=== PATIENT | male | born 1950 | race Caucasian/White ===

== ENCOUNTER → 2020-11-28 10:15 | Outpatient (BNVA) | payer OTHER, SELFPAY | PROVIDERS: Referring Provider Emergency Medicine Emergency Medical Services; Visit Provider Specialist | DX: M19.012 Primary osteoarthritis, left shoulder (principal); M25.512 Pain in left shoulder | CPT/HCPCS: 73030 ==

== ENCOUNTER 2020-12-17 10:42 | Outpatient (CLI) | payer OTHER, SELFPAY ==
--- NOTE | 2020-12-17 10:55 | MR_ITS ---
WS: [id number] MRI LEFT SHOULDER NONCONTRAST TECHNIQUE: Sagittal T2, coronal T1, T2 and proton density imaging. Axial gradient PDE imaging. CLINICAL INFORMATION: PAIN COMPARISON: None. FINDINGS: Moderate degenerative arthritis AC joint with edema. Prominent protuberant hypertrophic changes and/o r chronic os acromiale. Moderate to severe narrowing of the subacromial space. Small amount of subacr omial/subdeltoid fluid. Diffuse chronic thinning of the supraspinatus. Small tear involving the supra spinatus insertion measuring 5 mm. Normal infraspinatus. Normal teres minor. Fluid in the subcoracoid bursa. Biceps tendon is absent in the bicipital groove proximally presumably due to chronic tear. Partial high-grade tear involving the subscapularis with some tendon laxity. A few normal fibers visualized distally. Degenerative fraying of the glenoid labrum. Degenerative aragon es involving the glenohumeral joint with subchondral cystic change and chondromalacia. MR/MR shoulder LT wo con* [id number] IMPRESSION: 1. Moderate degenerative arthritis AC joint with downsloping of the acromion a nd moderate subacromial narrowing. Prominent protruding hypertrophic changes at the AC joint. Subacromial/subdeltoid effusion. 2. Chronic thinning of the supraspinatus with a small insertional tear. 3. Normal infraspinatus and teres minor. 4. Partial thickness tear involving the subscapularis with tendon laxity. This appears chronic. 5. Biceps tendon is absent in the bicipital groove proximally consistent with chronic tear. 6. Moderate to advanced degenerative arthritis glenohumeral joint with subchon dral cystic changes
== END 2020-12-17 10:43 | disposition home or self-care (01) ==
PROVIDERS: Visit Provider Specialist
DX: M19.012 Primary osteoarthritis, left shoulder (principal); M75.102 Unspecified rotator cuff tear or rupture of left shoulder, not specified as traumatic
CPT/HCPCS: 73221

== ENCOUNTER 2022-09-08 08:53 | Outpatient (CLI) | payer OTHER, SELFPAY ==
--- NOTE | 2022-09-08 09:06 | USCV_ITS ---
Deepika Mark Age: 72 Gender: M : 1950 Exam Date: 09/08/2022 09:32 Ordering Phys: Deep Miller DO Technologist: LINCOLN Exam Location: [facility] – [place] Indication: Screening HISTORY: Diameter (cm) AP x Transverse x Length Velocity (cm/s) Waveform Prox Aorta: 1.73 x 1.68 x 81.80 Triphasic Mid Aorta: 1.88 x 1.99 x 56.20 Triphasic Distal Aorta: 1.88 x 1.88 x 47.10 Triphasic Right Iliac Prox: 1.40 x 1.34 x 71.90 Triphasic Left Iliac Prox: 1.38 x 1.20 x 65.30 Triphasic Stent Prox Landing x x Aneurysmal Sac Max x x Lt Lat Sac Dim Rt Lat Sac Dim Stent Dist Landing x x Right Iliac Stent x x Left Iliac Stent x x Right Renal Art Left Renal Art FINDINGS: Comparison: none available. No evidence of abdominal aortic aneurysm. Ectatic abdominal aorta with evidence of atherosclerotic plaque noted. No significant stenosis noted in the abdominal aorta. There is evidence of atherosclerotic plaque no significan stenosis in the right common iliac artery. There is evidence of atherosclerotic plaque no significan stenosis in the left common iliac artery. CONCLUSIONS Ectatic abdominal aorta with evidence of atherosclerotic plaque noted. No AAA. Dr. Zeina Diane DO (Electronically Signed) Final Date: 08 September 2022 10:10 S
--- NOTE | 2022-09-08 10:08 | CT_ITS ---
WS: [id number] CT LUMBAR SPINE, noncontrast. HISTORY: CHRONIC LOW BACK PAIN TECHNIQUE: Contiguous 2.5 mm axial imaging are performed. Sagittal and coronal reformats are submitte d and reviewed. All CT scans at [facility] use at least one of these dose optimization techni ques: automated exposure control; mA and/or kV adjustment per patient size (includes targeted exams w here dose is matched to clinical indication); or iterative reconstruction. IV contrast: None DLP: 1645.72 mGy.cm COMPARISON: None available. Mild curvature lumbar spine. Remote biconcave fracture at L2. 4 mm retropulsion of the posterior vert ebral body. Status post vertebroplasty of L2. A small amount of methylmethacrylate is along the poste rior vertebral body. Moderate disc space narrowing and desiccation at L5-S1. L1-2: No central or foraminal stenosis. Mild retropulsion of posterior L2 vertebral body with mild en croachment upon the thecal sac. L2-3: No stenosis. L3-4: Mild disc bulging with ligamentum flavum and facet arthritis. Mild encroachment into the thecal sac. Mild bilateral central and foraminal stenosis. L4-5: Moderate annular disc bulging encroaching upon the ventral thecal sac and subarticular recess. Moderate central and bilateral subarticular recess encroachment. Moderate ligamentum flavum and facet arthritis. Mild bilateral foraminal stenosis. Most significant contact upon the traversing L5 nerve roots. L5-S1: Mild disc bulging. There is a small RIGHT foraminal disc protrusion with mild contact on the R IGHT L5 exiting nerve root. Moderate atherosclerotic plaque within the aorta. Bilateral perinephric stranding. Sigmoid diverticul osis. Fusion across the SI joints. CT/CT lumbar spine wo con* [id number] IMPRESSION: 1. Moderate central and subarticular recess stenosis at L4-5 with mild foramin al stenosis. Disc contacts the traversing L5 nerve roots. 2. Mild central and bilateral foraminal stenosis at L3-4. 3. RIGHT foraminal disc protrusion with mild contact on the RIGHT L5 exiting n erve root. 4. Remote L2 biconcave compression fracture with 4 mm retropulsion of posterio r superior endplate. Very mild contact on the thecal sac with no high-grade callie nosis.
--- NOTE | 2022-09-08 10:17 | US_ITS ---
WS: [id number] THYROID ULTRASOUND HISTORY: PARTIAL THYROIDECTOMY, FATIGUE COMPARISON: None available. 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 No mass at the thyroid bed. No enlarged lymph nodes. There are small benign lymph nodes along the cervical chain. Left lobe: 2.0 cm x 2.3 cm x 3.4 cm (w x ap x l). Volume: 8.1 cm3. Small colloid cyst in the mid LEFT lobe measures 2 x 2 x 4 mm. No solid nodule. Benign LEFT cervical chain lymph node. Isthmus: 0.2 cm. US/US thyroid [id number] IMPRESSION: 1. Status post RIGHT thyroidectomy. 2. No recurrent mass at the RIGHT thyroid bed. 3. Benign colloid cyst LEFT thyroid.
== END 2022-09-08 08:54 | disposition home or self-care (01) ==
LOC: RAD 08:55
PROVIDERS: PCP Emergency Medicine Emergency Medical Services; Visit Provider Emergency Medicine Emergency Medical Services
DX: G89.29 Other chronic pain (principal); R53.83 Other fatigue; E89.0 Postprocedural hypothyroidism; Z13.6 Encounter for screening for cardiovascular disorders; E04.1 Nontoxic single thyroid nodule; M48.061 Spinal stenosis, lumbar region without neurogenic claudication; M51.26 Other intervertebral disc displacement, lumbar region
CPT/HCPCS: 72131; 76536; 76706

== ENCOUNTER → 2022-10-28 09:40 | Outpatient (BNVA) | payer OTHER, SELFPAY | PROVIDERS: PCP Emergency Medicine Emergency Medical Services; Visit Provider Anesthesiology Pain Medicine | DX: M54.50 Low back pain, unspecified (principal); M79.604 Pain in right leg; M79.605 Pain in left leg | CPT/HCPCS: 99214 ==

== ENCOUNTER → 2023-01-15 09:16 | Outpatient (BNVA) | payer OTHER, SELFPAY | PROVIDERS: PCP Emergency Medicine Emergency Medical Services; Visit Provider Anesthesiology Pain Medicine | DX: M48.061 Spinal stenosis, lumbar region without neurogenic claudication (principal); M79.604 Pain in right leg; M79.605 Pain in left leg | CPT/HCPCS: 99214 ==

== ENCOUNTER → 2023-01-29 13:43 | Outpatient (BNVA) | payer OTHER, SELFPAY | PROVIDERS: PCP Emergency Medicine Emergency Medical Services; Visit Provider Anesthesiology Pain Medicine | DX: M54.16 Radiculopathy, lumbar region (principal) | CPT/HCPCS: 64483; 64484; J1100; J3490 ==

== ENCOUNTER → 2023-02-12 12:35 | Outpatient (BNVA) | payer OTHER, SELFPAY | PROVIDERS: PCP Emergency Medicine Emergency Medical Services; Visit Provider Anesthesiology Pain Medicine | DX: M54.16 Radiculopathy, lumbar region (principal) | CPT/HCPCS: 64483; 64484; J1100; J3490 ==

== ENCOUNTER → 2023-03-31 08:23 | Outpatient (BNVA) | payer OTHER, SELFPAY | PROVIDERS: PCP Emergency Medicine Emergency Medical Services; Visit Provider Anesthesiology Pain Medicine | DX: M48.061 Spinal stenosis, lumbar region without neurogenic claudication (principal) | CPT/HCPCS: 99214 ==

== ENCOUNTER 2023-12-23 15:25 | Outpatient (CLI) | payer OTHER, SELFPAY ==
--- NOTE | 2023-12-23 15:36 | MR_ITS ---
WS: [id number] MRI CERVICAL SPINE NONCONTRAST HISTORY: CHRONIC NECK PAIN COMPARISON: None available. Technique: Multiplanar, multisequence noncontrast imaging of the cervical spine. LEFT curvature cervical spine. Anterior cervical fusion from C3-C6. Interbody spacers at C3-4, C4-5 and C5-6. Disc spaces are all na rrowed. No acute fracture or marrow edema. Bony fusion across the RIGHT facet joints of C5-6. Signal within the cervical cord is normal. Visualized posterior fossa is unremarkable. Craniocervical junction, C1 and C2 relationship, odontoid process and soft tissues are normal. C2-C3: Large central disc protrusion contacting the ventral thecal sac. Severe bilateral facet joint arthritis. Combination of findings resulting in at least moderate central and bilateral foraminal callie nosis. Contributing to this stenosis is osteophyte encroachment. C3-C4: Bilateral foraminal osteophytes and mild foraminal stenosis and facet arthritis. C4-C5: Bilateral mild facet arthritis. Very mild central stenosis. C5-C6: Bilateral facet arthritis. Small bilateral foraminal osteophytes and foraminal stenosis. C6-C7: Osteophytosis and disc bulging and facet arthritis. Mild central and bilateral foraminal steno sis. C7-T1: Normal. LEFT thyroid nodule 2.1 x 2.3 cm. IMPRESSION: 1. Advanced degenerative spondylitic changes throughout the cervical spine. 2. Prior anterior cervical fusion with interbody spacers from C3-C6. 3. Moderate central and bilateral foraminal stenosis at C2-3 due to osteophytosis and disc disease a nd facet arthritis. 4. Additional mild central and bilateral foraminal stenoses from C3-4 through C6-7 as described ulisses e. Contributing to this stenosis is facet joint arthritis.
--- NOTE | 2023-12-23 15:37 | MR_ITS ---
WS: [id number] MRI LUMBAR SPINE NONCONTRAST HISTORY: BACK PAIN COMPARISON: None available. TECHNIQUE: Sagittal and axial multisequence imaging is submitted. Marked increase in the lumbar lordosis. Chronic biconcave L2 vertebral body fracture. Prior L2 kyphop lasty. No acute marrow edema. 3 mm anterolisthesis of L4. Normal lumbar alignment with no compression fractures or marrow edema. Disc spaces are all mildly narrowed and desiccated. Conus terminates normally at L1-2 disc level. 50% T6 anterior wedging. Very minimal anterior wedging of T11. L1-L2: Bilateral facet arthritis no significant stenosis. L2-L3: Mild annular disc bulging with a shallow LEFT foraminal disc protrusion. There is very slight bowing of the L2 vertebral body without significant stenosis. Mild bilateral foraminal stenosis. L3-L4: Diffuse annular disc bulging with osteophytosis, ligamentum flavum and facet arthritis. Fluid in the facet joints. Severe central and bilateral subarticular recess stenosis with moderate foramina l stenosis. Significant encroachment upon the traversing L4 nerve roots. L4-L5: Severe annular disc bulging, osteophytosis, ligamentum flavum and facet arthritis. Fluid in th e LEFT facet joint. Severe central, bilateral subarticular recess with moderate RIGHT and mild LEFT f oraminal stenosis. Most significant contact on the traversing L5 nerve roots and the RIGHT exiting L4 nerve root. L5-S1: Mild annular disc bulging with mild bilateral facet arthritis. Moderate bilateral foraminal st enosis. No significant central stenosis. Low signal 10 mm mass in the LEFT kidney is probably hemorrhagic cyst. IMPRESSION: 1. Biconcave L2 vertebral body fracture status post kyphoplasty. Chronic. 2. No acute lumbar spine fracture. 3. L3-4 and L4-5: Severe central and bilateral subarticular recess stenosis. Moderate bilateral fora salma stenosis at L3-4 and on the RIGHT at L4-5. Most significant disc contact is on the traversing L 4 and L5 nerve roots and the RIGHT exiting L4 nerve root. 4. Moderate bilateral foraminal stenosis at L5-S1. 5. Remote T6 and T11 anterior compression fractures.
== END 2023-12-23 15:26 | disposition home or self-care (01) ==
LOC: RAD 15:26
PROVIDERS: PCP Emergency Medicine Emergency Medical Services; Visit Provider Emergency Medicine Emergency Medical Services
DX: M54.16 Radiculopathy, lumbar region (principal); M48.07 Spinal stenosis, lumbosacral region; M48.02 Spinal stenosis, cervical region; M47.812 Spondylosis without myelopathy or radiculopathy, cervical region; Z98.890 Other specified postprocedural states
CPT/HCPCS: 72141; 72148

== ENCOUNTER 2024-07-25 11:15 | Emergency (ER) | payer OTHER, SELFPAY ==
[2024-07-25] VITALS (8 sets, daily range): BP systolic 106–147; BP diastolic 50–101; PULSE 77–107; RESP 14–18; TEMP 36.7; O2SAT 90–96; BMI 29.0
--- NOTE | 2024-07-25 11:17 | ECG_ITS ---
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 Measurements Intervals [place] Rate: 107 P: 0 ID: 0 QRS: -36 QRSD: 102 T: 85 QT: 347 QTc: 464 Interpretive Statements ATRIAL FIBRILLATION WITH RAPID VENTRICULAR RESPONSE WITH ABERRANT CONDUCTION OR VENTRICULAR PREMATURE COMPLEXES LEFT AXIS DEVIATION [QRS AXIS < -30] SEPTAL MYOCARDIAL INFARCTION , PROBABLY OLD [40+ ms Q WAVE IN V1/V2] No previous ECG available for comparison Electronically Signed On 07-26-2024 01:21:55 CDT by Radha Dai M.D. [id number] f
--- NOTE | 2024-07-25 11:33 | XRR_ITS ---
PROCEDURE INFORMATION: Exam: XR Chest Exam date and time: 07/25/2024 11:49 AM Age: 73 years old Clinical indication: Shortness of breath; Additional info: Palpitations TECHNIQUE: Imaging protocol: Radiologic exam of the chest. Views: 1 view. COMPARISON: MR cervical spin wo con* [id number] 12/23/2023 3:45 PM FINDINGS: Lungs: Atelectasis, infiltrate, or fibrosis in the left lower lobe. Pleural spaces: Unremarkable. No pleural effusion. No pneumothorax. Heart/Mediastinum: See Vasculature finding. Vasculature: Moderate cardiomegaly and uncoiling of the thoracic aorta each accentuated by the AP positioning. Bones/joints: Prior trauma involving the left clavicle and multiple left ribs. XR/XR chest 1V portable [id number] IMPRESSION: Mild opacity at the left lung base, an unknown combination of atelectasis, infiltrate, and/or fibrosis.
--- NOTE | 2024-07-25 11:38 | ED_ITS ---
HPI - Dizziness 2 General: Chief Complaint: Arrhythmia/Palpitations Stated Complaint: Afib (sent by [facility]) Time Seen by Provider: 07/25/24 11:30 History of Present Illness: HPI Narrative: 73-year-old man with a history of hypert ension, hyperlipidemia and recently diagnosed atrial fibrillation who was sent to the emergency room from the [facility] with atrial fibrillation with a heart rate of 107. He said he has had some recent mild dizziness/lightheadedness and some mild palpitations. No chest pain. No altered mental status. No abdominal pain. No nausea or vomiting. No fevers. Related Data Home Medications Medication Instructions Recorded Confirmed ascorbate calcium (vitamin C) 500 500 mg PO DAILY 11/28/20 07/25/24 mg tablet sertraline 100 mg tablet 100 mg PO DAILY 11/28/20 07/25/24 trazodone 100 mg tablet 100 mg PO DAILY 11/28/20 07/25/24 famotidine 20 mg tablet 20 mg PO BID 10/28/22 07/25/24 atorvastatin 80 mg tablet 80 mg PO QPM 07/25/24 07/25/24 cetirizine 10 mg tablet 10 mg PO DAILY 07/25/24 07/25/24 fluticasone 250 mcg-salmeterol 50 1 inh inhalation BID 07/25/24 07/25/24 mcg/dose blistr powdr for inhalation hydrochlorothiazide 25 mg tablet 12.5 mg PO DAILY 07/25/24 07/25/24 primidone 50 mg tablet 25 mg PO TID 07/25/24 07/25/24 Previous Rx's Medication Instructions Recorded metoprolol tartrate 25 mg tablet 12.5 mg (1/2 x 25 mg) PO BID #30 07/25/24 tabs Allergies Allergy/AdvReac Type Severity Reaction Status Date / Time No Known Allergies Allergy Verified 07/25/24 11:27 Review of Systems 2 Narrative: Constitutional symptoms: Negative except as documented in HPI. Skin symptoms: Negative except as documented in HPI. Eye symptoms: Negative except as documented in HPI. ENMT symptoms: Negative except as documented in HPI. Respiratory symptoms: Negative except as documented in HPI. Cardiovascular symptoms: Negative except as documented in HPI. Gastrointestinal symptoms: Negative except as documented in HPI. Genitourinary symptoms: Negative except as documented in HPI. Musculoskeletal symptoms: Negative except as documented in HPI. Neurologic symptoms: Negative except as documented in HPI. Psychiatric symptoms: Negative except as documented in HPI. Endocrine symptoms: Negative except as documented in HPI. PFSH ED 2 PFSH: Family History Father CAD (coronary artery disease) Mother Hypertension Dementia Diabetes Social History Smoking and tobacco/nicotine status: former use of tobacco/nicotine Alcohol intake: current Physical Exam 2 Narrative: EXAM NARRATIVE: General: Alert, no acute distress. Skin: Warm, dry. Head: Normocephalic, atraumatic. Neck: Supple, trachea midline. Eye: Extraocular movements are intact. Ears, nose, mouth and throat: mucosa moist. Cardiovascular: Irregularly irregular, mildly tachycardic, Normal peripheral perfusion. Respiratory: Lungs are clear to auscultation, respirations are non-labored, breath sounds are equal, Symmetrical chest wall expansion. Gastrointestinal: Soft, Nontender, Non distended Musculoskeletal: Normal ROM, no deformity. Neurological: Alert and oriented, No focal neurological deficit observed. Psychiatric: Cooperative, appropriate mood & affect. Course 2 Vital Signs: Vital signs: Vital Signs Temperature 98.0 F 07/25/24 11:23 Pulse Rate 95 07/25/24 14:13 Respiratory Rate 14 07/25/24 11:43 Blood Pressure 133/97 07/25/24 14:13 Pulse Oximetry 93 07/25/24 14:13 Oxygen Delivery Me thod Nasal Cannula 07/25/24 14:13 MDM - Dizziness Medical Decision Making Medical decision making: Differential diagnosis including but not limited to and based on the above HPI, review of systems and physical exam: for patient with palpitations: atrial fibrillation with rapid ventricular response. ventricular tachycardia. sinus tachycardia. PVCs. also concern for underlying issues causing tachycardia. Infection, electrolyte abnormalities and thyroid issues Orders placed to evaluate differential diagnosis based on the above differential, HPI and physical exam EKG: Time 1117. Rate 107. Atrial fibrillation with rapid ventricular response. No ST-T changes, This was reviewed and interpreted by myself the ER physician at 11:20 AM. Chest x-ray: Mild opacity in the left lung base. Could be atelectasis infiltrate or fibrosis. CT scan ordered to evaluate further. This was reviewed and interpreted by myself the emergency room physician. I also reviewed the radiology report. Lab Review: Laboratory results were reviewed and interpreted by myself the emergency room physician. No leukocytosis. No anemia. BUN and creatinine are slightly elevated at 15 and 1.4. No previous labs so I do not have a baseline. Potassium is mildly low at 3.2. CT of the chest shows no acute process. There is some fibrosis in the left lung. There was also a pulmonary nodule that needs repeat imaging. I reviewed the patient's medical record. TUCKER?DS?-VASc Score for Atrial Fibrillation Stroke Risk from [employer] on 07/25/2024 All calculations should be rechecked by clinician prior to use RESULT SUMMARY: 2 points Stroke risk was 2.2% per year in >90,000 patients (the [place] Atrial Fibrillation Cohort Study) and 2.9% risk of stroke/TIA/systemic embolism. One recommendation suggests a 0 score for men or 1 score for women (no clinical risk factors) is ?low? risk and may not require anticoagulation; a 1 score for men or 2 score for women is ?low-moderate? risk and should consider anticoagulation; and a score >= for men or >= for women is ?moderate-high? risk and should otherwise be an anticoagulation candidate. INPUTS: Age ?> 1 = 65-74 Sex ?> 0 = Male CHF history ?> 0 = No Hypertension history ?> 1 = Yes Stroke/TIA/thromboembolism history ?> 0 = No Vascular disease history (prior [place], peripheral artery disease, or aortic plaque) ?> 0 = No Diabetes history ?> 0 = No Patient is low to moderate risk for needing anticoagulation with his A-fib. I will defer this to his primary care physician. Reexamination: Patient remained stable. Rate is controlled. No altered mental status. No focal motor deficits. Assessment and plan Atrial fibrillation Dehydration Pulmonary nodule ? Normal saline bolus and first dose metoprolol emergency room. - Discharged home - Discussed plan with patient. Answered any questions. - Evaluation and treatment of this problem were appropriate in the emergency setting. Lab Data 07/25/24 11:45 07/25/24 11:45 Radiology Impressions Chest X-Ray 07/25/24 11:33 IMPRESSION: Mild opacity at the left lung base, an unknown combination of atelectasis, infiltrate, and/or fibrosis. Chest CT 07/25/24 13:13 IMPRESSION: 1. Mild fibrosis on the left. 2. Small semi-solid focus on the right, likely fibrosis. Follow-up chest CT in 3 months recommended. Laboratory Results WBC 7.33 10^3/uL (3.29-11.43) 07/25/24 11:45 RBC 4.82 10^6/uL (3.85-5.65) 07/25/24 11:45 Hgb 14.90 g/dL (11.27-16.99) 07/25/24 11:45 Hct 43.2 % (37-53) 07/25/24 11:45 MCV 89.6 fl (82-101) 07/25/24 11:45 MCH 30.9 pg (27-33) 07/25/24 11:45 MCHC 34.5 g/dL (30-55) 07/25/24 11:45 RDW 13.4 % (12.1-15.1) 07/25/24 11:45 Plt Count 226 10^3/cmm (157-399) 07/25/24 11:45 MPV 9.5 fL (7.4-10.4) 07/25/24 11:45 Neut % (Auto) 57.4 % 07/25/24 11:45 Lymph % (Auto) 27.7 % 07/25/24 11:45 Catron % (Auto) 11.9 % 07/25/24 11:45 Eos % (Auto) 1.9 % 07/25/24 11:45 Baso % (Auto) 0.8 % 07/25/24 11:45 Neut # (Auto) 4.21 10^3/uL (1.8-7.7) 07/25/24 11:45 Lymph # (Auto) 2.0 10^3/uL (0.8-4.8) 07/25/24 11:45 Catron # (Auto) 0.9 10^3/uL (0.2-0.9) 07/25/24 11:45 Eos # (Auto) 0.1 10^3/uL (0.0-0.8) 07/25/24 11:45 Baso # (Auto) 0.1 10^3/uL (0.0-0.1) 07/25/24 11:45 Nucleated RBC % (auto) 0 % 07/25/24 11:45 Nucleated RBCs # 0.0 /100WBC 07/25/24 11:45 Sodium 134 mmol/L (136-145) L 07/25/24 11:45 Potassium 3.2 mmol/L (3.5-5.1) L 07/25/24 11:45 Chloride 100 mmol/L (98-107) 07/25/24 11:45 Carbon Dioxide 27 mmol/L (22-29) 07/25/24 11:45 Anion Gap 10.2 (5-19) 07/25/24 11:45 BUN 15 mg/dL (8-23) 07/25/24 11:45 Creatinine 1.4 mg/dL (0.7-1.2) H 07/25/24 11:45 GFR Calculation Not Reportable 07/25/24 11:45 Glucose 107 mg/dL (65-115) 07/25/24 11:45 Calculated Osmolality 279 mOsm/kg (285-295) L 07/25/24 11:45 Calcium 8.6 mg/dL (8.5-10.5) 07/25/24 11:45 Magnesium 1.9 mg/dL (1.7-2.3) 07/25/24 11:45 Total Bilirubin 0.7 mg/dL (0.15-1.2) 07/25/24 11:45 AST 38 U/L (0-40) 07/25/24 11:45 ALT 32 U/L (0-41) 07/25/24 11:45 Alkaline Phosphatase 66 U/L (40-130) 07/25/24 11:45 Troponin T Baseline 20 ng/L (0-15) H 07/25/24 11:45 Troponin T 120 Minute 19.40 ng/L (0-15) H 07/25/24 13:38 Delta Troponin T -0.60 ABS# (0-10) L 07/25/24 13:38 Total Protein 6.4 g/dL (6.6-8.7) L 07/25/24 11:45 Albumin 4.0 g/dL (3.5-5.2) 07/25/24 11:45 Globulin 2.4 g/dL (1.3-4.6) 07/25/24 11:45 TSH 0.79 uIU/mL (0.27-4.20) 07/25/24 11:45 All radiology interpretation(s) finalized by discharge Discharge Plan Discharge Patient Disposition: Home Clinical Impression: Atrial fibrillation, Incidental pulmonary nodule Condition: Stable Prescriptions: New metoprolol tartrate 25 mg tablet 12.5 mg PO BID Qty: 30 1RF No Action sertraline 100 mg tablet 100 mg PO DAILY trazodone 100 mg tablet 100 mg PO DAILY ascorbate calcium (vitamin C) 500 mg tablet 500 mg PO DAILY famotidine 20 mg tablet 20 mg PO BID primidone 50 mg Tablet 25 mg PO TID Rx Instructions: take 1/2 tablet by mouth three times daily for tremor fluticasone propion-salmeterol 250-50 mcg/dose Blister With Device 1 inh INHALATION BID atorvastatin 80 mg Tablet 80 mg PO QPM cetirizine 10 mg Tablet 10 mg PO DAILY hydrochlorothiazide 25 mg Tablet 12.5 mg PO DAILY Rx Instructions: take 1/2 tablet by mouth daily for high blood pressure Discharge Orders: Discharge ED (Routine); Ordered 07/25/24 Ordered By: Fallon Lundy Referrals: Karen Mcclendon FNP [Primary Care Provider] - Discharge Diet: Usual diet Discharge Activity: Increase activity as tolerated Patient Instructions: A-fib (Atrial Fibrillation) (ED), Pulmonary Nodules (ED) Activity Restrictions/Additional Instructions: Please hold your hydrochlorothiazide and start metoprolol. Follow-up with your primary soon. You may need to be anticoagulated but they will need to make this determination. A pulmonary nodule was seen on imaging. This will need follow up imaging with your primary provider. Please schedule an appointment concerning this. Thank you for choosing [facility] for your healthcare needs today. Please realize this is an emergency room and that we are providing you with a medical screening exam and this may not be complete and all inclusive of all the testing and or work up that you may need to determine your ailment or severity of your illness. You have been screened and evaluated and felt safe for discharge. Health conditions do change or evolve sometimes and as such it is important that you follow up with your Primary Doctor to be re checked, 3-5 days is a general good time frame for follow up. 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
[2024-07-25 11:55] LABS: Basophils # 0.1 10^3/uL (0.0-0.1); Basophils % 0.8 %; Eosinophils # 0.1 10^3/uL (0.0-0.8); Eosinophils % 1.9 %; Hematocrit 43.2 % (37-53); Lymphocytes % 27.7 %; Mean Corpuscular HGB Conc 34.5 g/dL (30-55); Mean Corpuscular Hemoglobin 30.9 pg (27-33); Mean Corpuscular Volume 89.6 fl (82-101); Mean Platelet Volume 9.5 fL (7.4-10.4); Monocytes # 0.9 10^3/uL (0.2-0.9); Monocytes % 11.9 %; Neutrophils # 4.21 10^3/uL (1.8-7.7); Neutrophils % 57.4 %; Nucleated Red Blood Cells % 0 %; Platelet Count 226 10^3/cmm (157-399); Red Blood Count 4.82 10^6/uL (3.85-5.65); Red Cell Distribution Width 13.4 % (12.1-15.1); White Blood Count 7.33 10^3/uL (3.29-11.43)
[2024-07-25 12:13] LABS: Troponin(5th) Baseline 20 ng/L (0-15)
[2024-07-25 12:21] LABS: Alanine Aminotransferase 32 U/L (0-41); Alkaline Phosphatase 66 U/L (40-130); Anion Gap 10.2 (5-19); Aspartate Amino Transferase 38 U/L (0-40); Blood Urea Nitrogen 15 mg/dL (8-23); Calcium 8.6 mg/dL (8.5-10.5); Carbon Dioxide 27 mmol/L (22-29); Chloride 100 mmol/L (98-107); Creatinine Clr Calc Pharmacy 49.5618; Globulin 2.4 g/dL (1.3-4.6); Glucose 107 mg/dL (65-115); Magnesium 1.9 mg/dL (1.7-2.3); Osmolality Calculated 279 mOsm/kg (285-295); Potassium 3.2 mmol/L (3.5-5.1); Sodium 134 mmol/L (136-145); Thyroid Stimulating Hormone 0.79 uIU/mL (0.27-4.20); Total Bilirubin 0.7 mg/dL (0.15-1.2); Total Protein 6.4 g/dL (6.6-8.7)
--- NOTE | 2024-07-25 12:28 | PC.PHAR ---
[facility] [place] [facility], [facility]ed over med list
--- NOTE | 2024-07-25 13:13 | CTR_ITS ---
PROCEDURE INFORMATION: Exam: CT Chest Without Contrast; Diagnostic Exam date and time: 07/25/2024 1:24 PM Age: 73 years old Clinical indication: Shortness of breath; Additional info: Abnormal chest xray TECHNIQUE: Imaging protocol: Diagnostic computed tomography of the chest without contrast. Radiation optimization: All CT scans at this facility use at least one of these dose optimization techniques: automated exposure control; mA and/or kV adjustment per patient size (includes targeted exams where dose is matched to clinical indication); or iterative reconstruction. COMPARISON: CR XR chest 1V portable [id number] 07/25/2024 11:49 AM RADIATION DOSE METRICS: Total DLP (mGy-cm): 524 FINDINGS: Lungs: 1.2 x 1.7 cm semi-solid focus at the right lung base (4-43) is likely fibrosis. Follow-up in 3 months recommended. Mild linear fibrosis at the left base. No infiltrate or effusion. Pleural spaces: Unremarkable. No pneumothorax. No pleural effusion. Heart: Unremarkable. No cardiomegaly. No pericardial effusion. Coronary arteries: Coronary artery calcifications. Lymph nodes: Unremarkable. No enlarged lymph nodes. Vasculature: Azygos accessory fissure. Diaphragm: Moderate hiatal hernia. Liver: Coarse hepatic calcifications. Small likely hepatic cysts. Bones/joints: Mild compression of an upper thoracic vertebral body. Soft tissues: Unremarkable. CT/CT chest wo con [id number] IMPRESSION: 1. Mild fibrosis on the left. 2. Small semi-solid focus on the right, likely fibrosis. Follow-up chest CT in 3 months recommended.
--- NOTE | 2024-07-25 14:07 | ECG_ITS ---
[facility] Test Date: 2024-07-25 Pat Name: Mark Poe Department: Room: Gender: Male Electronic Technologist: : 1950 Requested By: Fallon Evans Order Number: [id number] Carly MD: Radha Dai M.D. Measurements Intervals [place] Rate: 94 P: 0 CO: 0 QRS: -35 QRSD: 105 T: 71 QT: 379 QTc: 475 Interpretive Statements ATRIAL FIBRILLATION WITH ABERRANT CONDUCTION OR VENTRICULAR PREMATURE COMPLEXES LEFT AXIS DEVIATION [QRS AXIS < -30] INCOMPLETE RIGHT BUNDLE BRANCH BLOCK [90+ ms QRS DURATION, TERMINAL R IN V1/V2, 40+ ms S IN I/aVL/V4/V5/V6] Compared to ECG 07/25/2024 11:17:23 Incomplete right bundle-branch block now present Myocardial infarct finding no longer present Electronically Signed On 07-26-2024 01:35:13 CDT by Radha Dai M.D. [id number]
[2024-07-25] MEDS: sodium chloride 0.9% 500 ML 999 ML IV (14:55)
[2024-07-25] MEDS: metoprolol tartrate 25 mg Tablet 12.5 MG PO (14:55)
--- NOTE | 2024-07-26 13:30 | PC.SOCIAL ---
Records sent to [place].
== END 2024-07-25 15:22 | disposition home or self-care (01) ==
PROVIDERS: Emergency Provider Emergency Medicine; PCP Nurse Practitioner
DX: I48.20 Chronic atrial fibrillation, unspecified (principal); R91.1 Solitary pulmonary nodule; Z87.891 Personal history of nicotine dependence
CPT/HCPCS: 36415; 71045; 71250; 80053; 83735; 84443; 84484; 85025; 93005; 99285; J7040

== ENCOUNTER → 2024-09-08 10:00 | Outpatient (BNVA) | payer OTHER, SELFPAY | PROVIDERS: PCP Nurse Practitioner; Referring Provider Nurse Practitioner; Visit Provider Student in an Organized Health Care Education/Training Program | DX: Z12.11 Encounter for screening for malignant neoplasm of colon (principal) | CPT/HCPCS: 99204 ==

== ENCOUNTER → 2024-10-10 10:46 | Outpatient (BNVA) | payer OTHER, SELFPAY | PROVIDERS: PCP Nurse Practitioner; Visit Provider Internal Medicine Cardiovascular Disease | DX: I48.91 Unspecified atrial fibrillation (principal); I10 Essential (primary) hypertension; E78.5 Hyperlipidemia, unspecified; E11.9 Type 2 diabetes mellitus without complications; R01.1 Cardiac murmur, unspecified; I49.8 Other specified cardiac arrhythmias; Z79.01 Long term (current) use of anticoagulants; Z87.891 Personal history of nicotine dependence | CPT/HCPCS: 99205 ==

== ENCOUNTER 2024-10-25 11:50 | Day surgery (SDC) | payer OTHER, SELFPAY ==
--- OUTSIDE RECORDS SUMMARY | 2024-09-12 11:33 | XMS_ITS | Patient Health Record ---
Author Name Unknown Organization [facility] Address [address] [place] [address] Care Team Providers Care Apple Sorter Name Role Phone [facility] Deep LEZAMA Primary Care Provider Un available Nicolás Vasquez Unavailable [phone] [place], [place] Unavailable Unavailable Allergies No Known Allergies Reason For Referral Reason Screening COLON-Cx ed Referring Provider First Name Jeremiah Wenceslao ff Referring Provider Last Name AR Referring Provider [facility] Referred Organization [facility] Referred Provider Nicolás Vasquez Referred Address [address] [place],[address], Referred Provider Specialty Gastroentero logy Referral Priority Routine Reason Screening F/U-w/Ca rmel Referring Provider First Name Jeremiah Wenceslao ff Referring Provider Last Name AR Referring Provider [facility] Referred Organization [facility] Referred Provider Nicolás Vasquez Referred Address [address] [place],[address], Referral Priority Routine Medications Medication SIG (Take, Route, Frequency, Duration) Notes Start Date End Date Status Reglan 10 MG 1 tablet as directed Orally once for 1 day 08/03/2023 Active Wixela Inhub 100-50 MCG/ACT 1 puff Inhal ation Twice a day Active Albuterol Sulfate 108 (90 Ba se) MCG/ACT 1 puff as needed Inhalation every 4 hrs as needed Active Vitamin D3 50 MCG (1999) 1 tablet Ora lly Once a day Active Calcium 500 MG 1 tablet with meals Orally Twice a day Active Atorvastatin Calcium 80 MG 1 tablet Oral ly Once a day Active Famotidine 20 MG 1 tablet Orally Twic e a day Active Sertraline HCl 200 MG 1 capsule Orally O nce a day Active hydroCHLOROthiazide 25 MG 1/2 tablet Ora lly Once a day Active traZODone HCl 100 MG 1 tablet at bedtime Orally Once a day Active Social History Tobacco Use: Social History Observation Description Date Details (start date - stop date) Former Smoker NA - NA xTobacco Use/Smoking Question Answer Notes Are you a former smoker How long has it been since you last smoked? > 10 years Problems Problem Type SNOMED Code ICD Code Onset Dates Problem Status W/U Status Risk Notes Problem 071173182 History of adenomatous polyp of colon (Z86.010) Active confirmed Plan Of Treatment Pending Test Test Name Order Date Colonoscopy, High Risk Screening-G0105 1 Insurance Providers Payer Name Payer Address Payer Phone Subscriber Number Group Number Insured Name Patient Relationship to Insured Coverage Start Date Coverage End Date [employer] [address] [place]HA GONZALEZ [phone] [id number] Mark Poe Self - patient is the insured Medical (General) History Medical History History ICD Code Pneumonia Arthritis Gonorrhea Vertebral facture Hypertension hemorrhoids Asthma COPD Anxiety Adenomatous colon polyps depression GERD Psoriasis sleep apnea Thyroid nodules Surgical History Surgery Date(Month/Year) left knee arthroscopy, meniscus repair 0 06/21/1994 Hiatal hernia repair 12/22/2009 Left thyroid nodule excision 2006 Right thyroidectomy 2012 Bilateral CEIOLI 2021 Lumbar and cervical spine surgery Right inguinal hernia repair
--- OUTSIDE RECORDS SUMMARY | 2024-09-12 11:33 | XMS_ITS ---
Author Name Unknown Organization [facility] Address [address] [place] [address] Care Team Providers Care Home Assessment Nurse Name Role Phone [facility] Deep LEZAMA Primary Care Provider Un available Nicolás Vasquez Unavailable [phone] Jeremiah WAYNE Unavailable Unavailable REASON FOR VISIT hx of adenomatous colon polyps, screening colon Medications Medication SIG (Take, Route, Frequency, Duration) Notes Start Date End Date Status Wixela Inhub 100-50 MCG/ACT 1 puff Inhal ation Twice a day Active Albuterol Sulfate 108 (90 Ba se) MCG/ACT 1 puff as needed Inhalation every 4 hrs as needed Active Vitamin D3 50 MCG (2000 UT) 1 tablet Ora lly Once a day [...] since you last smoked? > 10 years Encounters Encounter Location Date Provider Diagnosis [facility] [address] [place] [address] 12/07/2023 Nicolás Vasquez History of adenomatous polyp of colon Z86.010 and Screening for colon cancer Z12.11 Assessments Encounter Date Diagnosis (ICD Code) Assessment Notes Treatment Notes Treatment Clinical Notes 12/07/2023 History of adenomatous polyp of colon (ICD-10 - Z86.010) High risk screening colonoscopy today. 12/07/2023 Screening for colon cancer (ICD-10 - Z12.11) Plan Of Treatment Treatment Notes Assessment Notes History of adenomatous polyp of colon Hi gh risk screening colonoscopy today. Progress Notes * Mark PALMER EDOB: [birth year] (74 yo M)Acc No.[id number]:12/07/2023 History and Physical Patient:?Mark PALMER E Provider:?Nicolás Vasquez MD :1950???Age:73 Y???Sex:Male Baron e:12/07/2023 Address:[address] [place], [place] [address] [facility] [place] [address] Pcp:Deep Miller-AK, DO Check Out:09:21 AM COTTON INSPECTOR Subjective: * Chief Complaints: * ???1. Hx of adenomatous colo n polyps, screening colon. * HPI: ???Provider Note:? Mr. Palmer is a 73-year-old male patient of Dr. Miller here for surveillance colonoscopy. Last colonoscopy was in 2018 at [facility] in [place] with findings of adenomatous polyps. No family history of colon cancer. * ROS:?General - Multi System:?Constitutional?Denies fever, chills, recent weight loss.?Cardiovascular?Denies any recent chest pain.?Respiratory?Denies any shortness of breath, cough.?Gastrointestinal?Denies heartburn, constipation, diarrhea, nausea, vomiting, blood in stools, or abdominal pain.? * Medical History:?Pneumonia, Arthritis, Gonorrhea, Vertebral facture, Hypertension, Hemorrhoids, Asthma, COPD, Anxiety, Adenomatous colon polyps, Depression, GERD, Psoriasis, Sleep apnea, Thyroid nodules. * Surgical History:?left knee arthroscopy, meniscus repair 06/21/1994, Hiatal hernia repair 12/22/2009, Left thyroid nodule excision 2006, Right thyroidectomy 2011, Bilateral CEIOLI 2021, Lumbar and cervical spine surgery , Right inguinal hernia repair . * Family History:?Father: dece ased 86 yrs, pneumonia.?Mother: 92 yrs, skin cancer, diabetes, alzheimer's.? No family history of colon cancer or polyps. * Social History:?Tobacco Use:?xTobacco Use/Smoking?Are you a?former smoker ?How long has it been since you last smoked??> 10 years * Medications:?Taking Wixela I nhub 100-50 MCG/ACT Aerosol Powder Breath Activated 1 puff Inhalation Twice a day , Taking Albuterol Sulfate 108 (90 Base) MCG/ACT Aerosol Powder Breath Activated 1 puff as needed Inhalation every 4 hrs as needed , Taking Vitamin D3 50 MCG (2000 UT) Tablet 1 tablet Orally Once a day , Taking Calcium 500 MG Tablet 1 tablet with meals Orally Twice a day , Taking Atorvastatin Calcium 80 MG Tablet 1 tablet Orally Once a day , Taking Famotidine 20 MG Tablet 1 tablet Orally Twice a day , Taking Sertraline HCl 200 MG Capsule 1 capsule Orally Once a day , Taking hydroCHLOROthiazide 25 MG Tablet 1/2 tablet Orally Once a day , Taking traZODone HCl 100 MG Tablet 1 tablet at bedtime Orally Once a day Objective: * Vitals:? * Examination: ???General Examination: ?GENERAL APPEARANCE:?alert , pleasant, in no acute distress.?HEART:?Regular rate and rhythm.?LUNGS:?clear to auscultation bilaterally.?ABDOMEN:?bowel sounds present, soft, nontender, nondistended.? Assessment: * Assessment: 1.?History of adenomatous po lyp of colon - Z86.010 (Primary)???2.?Screening for colon cancer - Z12.11??? Plan: * Treatment: * Billing Information: * Visit Code:? * Procedure Codes:? * Electronic signature of Will carissa Vasquez MD on 09/12/2024 at 11:32 AM COTTON INSPECTOR Sign off status: Pending * Provider:?Nicolás Vasquez MD Date:? 024 Generated for Jaylan anthony/Elicia/Elda on:?09/12/2024 11:32 AM COTTON INSPECTOR History and Physical Notes * Examination Category Sub-Category Detail Notes General Examination GENERAL APPEARANCE: alert , pleasant, in no acute distress HEART: Regular rate and rhy thm LUNGS: clear to auscultatio n bilaterally ABDOMEN: bowel sounds present , soft, nontender, nondistended
--- OUTSIDE RECORDS SUMMARY | 2024-09-12 11:33 | XMS_ITS ---
Author Name Unknown Organization [facility] Address [address] [place] [address] Care Team Providers Care Class A Regional Truck Driver Name Role Phone [facility] Deep LEZAMA Primary Care Provider Un available Nicolás Vasquez Unavailable [phone] Maya WAYNEPatricksburg Unavailable Unavailable Felicitas Rose Unavailable [phone] Allergies No Known Allergies REASON FOR VISIT It's time for my colonoscopy Medications Medication SIG (Take, Route, Frequency, Duration) Notes Start Date End Date Status Famotidine 20 MG 1 tablet Orally Twice a day Active Sertraline HCl 200 MG 1 capsule Orally Once a day Active hydroCHLOROthiazide 25 MG 1/2 tablet Ora lly Once a day Active traZODone HCl 100 MG 1 tablet at bedtime Orally Once a day Active Atorvastatin Calcium 80 MG 1 tablet Oral ly Once a day Active Reglan 10 MG 1 tablet as directed Orally once for 1 day 08/03/2023 Active Wixela Inhub 100-50 MCG/ACT 1 puff Inhal ation Twice a day Active Albuterol Sulfate 108 (90 Base) MCG/ACT 1 puff as needed Inhalation every 4 hrs as needed Active Vitamin D3 50 MCG (2000 UT) 1 tablet Ora lly Once a day Active Calcium 500 MG 1 tablet with meals Orally Twice a day Active Golytely 236 GM as directed Orally once for 1 day 08/03/2023 08/04/2023 Active Social History Tobacco Use: Social History Observation Description Date Details (start date - stop date) Former Smoker NA - NA xTobacco Use/Smoking Question Answer Notes Are you a former smoker How long has it been since you last smoked? > 10 years Alcohol Screen (Audit-C) Question Answer Notes Did you have a drink containing alcohol in the p ast year? No Points 0 Interpretation Negative Problems Problem Type SNOMED Code ICD Code Onset Dates Problem Status W/U Status Risk Notes Problem [id number] History of adenomatous polyp of colon (Z86.010) Active confirmed Vital Signs Temperature 99.0 degrees Fahrenheit 08/03/20 23 Blood pressure systolic 122 mm Hg 08/03/20 23 Blood pressure diastolic 80 mm Hg 023 Heart Rate 96 /min 08/03/2023 Respiratory Rate 20 /min 08/03/2023 Height 67 in 08/03/2023 Weight 192.4 lbs 08/03/2023 BMI 30.13 kg/m2 08/03/2023 Oximetry 98 % 08/03/2023 Height-cm 170.18 cm 08/03/2023 Weight-kg 87.27 kg 08/03/2023 Encounters Encounter Location Date Provider Diagnosis [facility] [address] [place] [address] 08/03/2023 Felicitas Rose History of adenomatous polyp of colon Z86.010 ; Preprocedural examination Z01.818 and Screening for colon cancer Z12.11 Assessments Encounter Date Diagnosis (ICD Code) Assessment Notes Treat ment Notes Treatment Clinical Notes 08/03/2023 History of adenomatous polyp of colon (ICD-10 - Z86.010) 08/03/2023 Preprocedural examination (ICD-10 - Z01.818) The patient has a prerequisite risk factors for development of colon cancer. I have discussed the options of screening testing with their advantages and disadvantages. I have recommended screening colonoscopy with possible biopsy and polypectomy. Risks and Benefits: The benefits, risks, and complications were presented to pt. The patient is aware of the risk of bleeding, perforation, infection, and anesthetic complications related to colonoscopy. The patient is aware that although colonoscopy is an accurate procedure, it does have some limitations. As a result, some lesions, including cancer may be missed by colonoscopy. Ample time was given to answer all questions. Instructions given for the bowel prep. Follow up will be determined after the colonoscopy. Refer back to PCP. 08/03/2023 Screening for colon cancer (ICD-10 - Z12.11) 08/03/2023 Other Colonoscopy: Be fore Your Procedure material was printed, Learning About Foods That Are Good Sources of Fiber material was printed Plan Of Treatment Medication Medication Name Sig Start Date Stop Date Notes Reglan 10 MG 1 tablet as directed Orally once for 1 day 08/03/2023 Golytely 236 GM as directed Orally once for 1 day 08/03/20 23 08/04/2023 Treatment Notes Assessment Notes Preprocedural examination The patient has a prerequisite risk factors for development of colon cancer. I have discussed the options of screening testing with their advantages and disadvantages. I have recommended screening colonoscopy with possible biopsy and polypectomy. Risks and Benefits: The benefits, risks, and complications were presented to pt. The patient is aware of the risk of bleeding, perforation, infection, and anesthetic complications related to colonoscopy. The patient is aware that although colonoscopy is an accurate procedure, it does have some limitations. As a result, some lesions, including cancer may be missed by colonoscopy. Ample time was given to answer all questions. Instructions given for the bowel prep. Follow up will be determined after the colonoscopy. Refer back to PCP. 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 It's time for my colonos copy * HPI: ???::? The patient is a 72 year old male who presents on referral from the [facility] for a screening colonoscopy for colon cancer prevention. ?His last colonoscopy was in 2018 at the in [place] with findings of adenomatous polyps and was recommended a 5 year surveillance. ?He takes Famotidine twice a day and would occasionally have flareups with heartburns. He takes Tums as needed with relief of symptoms. ?He denies dysphagia, diarrhea, constipation, melena, abdominal pain, significant weight changes or loss of appetite. ?He occasionally notices blood on the toilet paper when he strains with bowel movements. ?He has no family history of colon cancer or polyps. * ROS:?General - Multi System:?Constitutional?Denies fever, chills, body aches, change in appetite, or problems with sleep.?Ear, Nose, Mouth, Throat?Denies any ear pain, sore throat, sinus congestion, or nasal drainage.?Cardiovascular?Denies any recent chest pain, palpitations or syncope.?Respiratory?Denies any shortness of breath, cough, or hemoptysis.?Gastrointestinal?REPORTS hearburns and occcasionally notices blood on the toilet paper when he strains with bowel movements.?.?Musculoskeletal?Denies any joint pain or swelling, no recent trauma.?Integumentary?Denies any rashes, bruising, or skin changes.?Psychiatric?Denies depression, anxiety, or suicidal thoughts/actions.? * Medical History:? * Surgical History:?left knee arthroscopy, meniscus repair 06/21/1994Hiatal hernia repair 12/22/2009Left thyroid nodule excision 2007Right thyroidectomy 2012Bilateral CEIOLI 2021Lumbar and cervical spine surgery Right inguinal hernia repair * Hospitalization/Major Diagno stic Procedure:? * Family History:?Father: dece ased 86 yrs, pneumonia.?Mother: 92 yrs, skin cancer, diabetes, alzheimer's.? No family history of colon cancer or polyps. * Social History:?Tobacco Use:?Tobacco Use/Smoking?Are you a?former smoker ?How long has it been since you last smoked??> 10 years ???Drugs/Alcohol:?Alcohol Screen (Audit-C)?Did you have a drink containing alcohol in the past year??No ?Points?0 ?Interpretation?Negative ?Do you smoke marijuana?: Admits, uses gummies. * Medications:?TakingWixela In hub 100-50 MCG/ACT Aerosol Powder Breath Activated 1 puff Inhalation Twice a dayAlbuterol Sulfate 108 (90 Base) MCG/ACT Aerosol Powder Breath Activated 1 puff as needed Inhalation every 4 hrs as neededVitamin D3 50 MCG (1999 UT) Tablet 1 tablet Orally Once a dayCalcium 500 MG Tablet 1 tablet with meals Orally Twice a dayAtorvastatin Calcium 80 MG Tablet 1 tablet Orally Once a dayFamotidine 20 MG Tablet 1 tablet Orally Twice a daySertraline HCl 200 MG Capsule 1 capsule Orally Once a dayhydroCHLOROthiazide 25 MG Tablet 1/2 tablet Orally Once a daytraZODone HCl 100 MG Tablet 1 tablet at bedtime Orally Once a dayMedication List reviewed and reconciled with the patientTaking Wixela Inhub 100-50 MCG/ACT Aerosol Powder Breath Activated 1 puff Inhalation Twice a dayTaking Albuterol Sulfate 108 (90 Base) MCG/ACT Aerosol Powder Breath Activated 1 puff as needed Inhalation every 4 hrs as neededTaking Vitamin D3 50 MCG (1999 UT) Tablet 1 tablet Orally Once a dayTaking Calcium 500 MG Tablet 1 tablet with meals Orally Twice a dayTaking Atorvastatin Calcium 80 MG Tablet 1 tablet Orally Once a dayTaking Famotidine 20 MG Tablet 1 tablet Orally Twice a dayTaking Sertraline HCl 200 MG Capsule 1 capsule Orally Once a dayTaking hydroCHLOROthiazide 25 MG Tablet 1/2 tablet Orally Once a dayTaking traZODone HCl 100 MG Tablet 1 tablet at bedtime Orally Once a dayMedication List reviewed and reconciled with the patient * Allergies:?N.K.D.A.no[Allerg ies Verified] Objective: * Vitals:?Ht: 67 in, Wt:192.4 lbs, Wt-k.27 kg, BMI:30.13 Index, Temp:99.0 F, BP:122/80 mm Hg, HR:96 /min, RR:20 /min, Oxygen sat %:98 %, Ht-cm: 170.18 cm. * Examination: ???General Examination: ?GENERAL APPEARANCE:?alert, well hydrated, in no distress, converses well.?HEAD:?normocephalic, atraumatic.?EYES:?PERRL; normal conjunctiva.?ORAL CAVITY:?normal, mucosa moist, Mallampati Score Class I.?THROAT:?clear, no erythema, no exudate.?SKIN:?warm and dry.?HEART:?Regular rate and rhythm, S1 S2 normal.?LUNGS:?clear to auscultation bilaterally, no wheezes, rales, or rhonchi.?ABDOMEN:?bowel sounds present, soft, nontender, nondistended.?MUSCULOSKELETAL:?normal gait, no obvious dysfunction or atrophy.? Assessment: * Assessment: 1.?Preprocedural examination - Z01.818 (Primary)?2.?History of adenomatous polyp of colon - Z86.010?3.?Screening for colon cancer - Z12.11? Plan: * Treatment: Notes: The patient has a prerequisite risk factors for development of colon cancer. I have discussed the options of screening testing with their advantages and disadvantages. I have recommended screening colonoscopy with possible biopsy and polypectomy. Risks and Benefits: The benefits, risks, and complications were presented to pt. The patient is aware of the risk of bleeding, perforation, infection, and anesthetic complications related to colonoscopy. The patient is aware that although colonoscopy is an accurate procedure, it does have some limitations. As a result, some lesions, including cancer may be missed by colonoscopy. Ample time was given to answer all questions. Instructions given for the bowel prep. Follow up will be determined after the colonoscopy. Refer back to PCP.??2.?History of adenomatous polyp of colon?Imaging: Colonoscopy, High Risk Screening-G0105* Dr. Vasquez.Hue Vieira 023 01:53:37 PM > GI-Exp 01/30/24-[id number] 3.?Screening for colon cancer?Imaging: Colonoscopy, High Risk Screening-G0105* Dr. Vasquez.DarielHue 023 01:53:37 PM > GI-Exp 01/30/24-[id number] 4.?Others? Notes: Colonoscopy: Before Your Procedure material was printed, Learning About Foods That Are Good Sources of Fiber material was printed?? * Procedure Codes:? Care Plan: * Problems:? * Billing Information: * Visit Code:? 25954 Office Visit, New Pt., Level 3. * Procedure Codes:? * Sign off status: Completed true * Provider:?Felicitas Rose APRN Date:?08/03 Generated for Jaylan atnhony/Elicia/Elda on:?09/12/2024 11:32 AM DOOR MACHINE OPERATOR History and Physical Notes * Examination Category Sub-Category Detail Notes General Examination GENERAL APPEARANCE: alert, w ell hydrated, in no distress, converses well HEAD: normocephalic, atrau matic EYES: PERRL; normal conjun ctiva THROAT: clear, no erythema, no exudate HEART: Regular rate and rhy thm, S1 S2 normal LUNGS: clear to auscultatio n bilaterally, no wheezes, rales, or rhonchi ABDOMEN: bowel sounds present , soft, nontender, nondistended SKIN: warm and dry MUSCULOSKELETAL: normal gait, no obvi ous dysfunction or atrophy ORAL CAVITY: normal, mucosa moist , Mallampati Score Class I
--- OUTSIDE RECORDS SUMMARY | 2024-09-12 11:33 | XMS_ITS ---
Author Name Unknown Organization [facility] Address [address] [place] [address] Care Team Providers Care Linemarker Name Role Phone [facility] Deep LEZAMA Primary Care Provider Un available Nicolás Vasquez Unavailable [phone] Jeremiah WAYNE Unavailable Unavailable Felicitas Rose Unavailable [phone] REASON FOR VISIT [facility] Referral-[facility] Encounters Encounter Location Date Provider Diagnosis [facility] [address] [place] [address] 07/21/2023 Felicitas Rose Plan Of Treatment No Information Progress Notes * Mark PALMER EDOB: [birth year] (72 yo M)Acc No.[id number]:07/21/2023 Patient:?Mark Palmer :1950???Age:72 Y???Sex:Male Address:[facility] [place] [address] * true * Date:? Generated for Vijayi raj/Elicia/eTransmitting on:?09/12/2024 11:33 AM BRINE PURIFIER
[2024-10-25 12:22] VITALS: BP 141/92; PULSE 100; RESP 18; TEMP 36.6; O2SAT 95; BMI 27.5
--- NOTE | 2024-10-25 12:24 | W.PM.OPSFHP ---
Same Day Surgery H&P Indication for Procedure/HPI DATE OF PROCEDURE: October 25, 2024 CHIEF COMPLAINT/INDICATIONFOR SURGICAL PROCEDURE: screening colonoscopy PREOP DIAGNOSIS: screening colonoscopy PLANNED PROCEDURE: Operation Date: 10/25/24 13:00 Proposed Procedures p Colonoscopy 33078, G0121, Z12.11(Not Applicable) - Juancarlos Gracia MD Medications/Allergies* Home Medications Medication Instructions Recorded Confirmed Type ascorbate calcium (vitamin C) 500 500 mg PO DAILY 11/28/20 10/20/24 History mg tablet sertraline 100 mg tablet 250 mg PO DAILY 11/28/20 10/20/24 History trazodone 100 mg tablet 100 mg PO BEDTIME 11/28/20 10/20/24 History famotidine 20 mg tablet 20 mg PO BID 10/28/22 10/20/24 History atorvastatin 80 mg tablet 80 mg PO QPM 07/25/24 10/20/24 History cetirizine 10 mg tablet 10 mg PO DAILY 07/25/24 10/20/24 History fluticasone 250 mcg-salmeterol 50 1 inh inhalation BID 07/25/24 10/20/24 History mcg/dose blistr powdr for inhalation primidone 50 mg tablet 25 mg PO TID 07/25/24 10/20/24 History apixaban 5 mg tablet (Eliquis) 5 mg PO BID 09/08/24 10/20/24 History Marijuana Gummie 25 mg PO BEDTIME PRN Pain 10/20/24 10/20/24 History Allergies/Adverse Reactions Allergy/AdvReac Type Severity Reaction Status Date / Time gabapentin Allergy Unknown Verified 10/10/24 10:58 Pertinent History/Comorbid Conditions* Medical History (Updated 10/10/24 @ 12:26 by Radha Dai MD) Hypertension Anxiety Depression Thyroid cancer Hiatal hernia Hernia Traumatic tear of supraspinatus tendon of left shoulder Knee arthropathy Surgical History (Updated 10/10/24 @ 11:30 by Radha Dai MD) H/O thyroidectomy History of neck surgery Hx of colonoscopy with polypectomy 5 years ago History of hernia surgery right side Family History (Updated 11/28/20 @ 10:34 by Shaunna Alcala LPN) Father Mother Diabetes Mother CAD (coronary artery disease) Father Dementia Mother Hypertension Mother Social History Smoking and tobacco/nicotine status: former use of tobacco/nicotine Alcohol intake: current Pertinent Exam Findings alert, oriented x 3, clear to auscultation bilaterally, regular rate & rhythm and procedure specific exam findings abdomen soft, nt, nd Recommendations Surgery/Procedure today Coding Level of Care Code Acute Code for Chg Fwd
[2024-10-25] MEDS: sodium chloride 0.9% 500 ML 15 ML IV (12:34)
--- NOTE | 2024-10-25 13:51 | ANES.PREANE2 ---
Pre-Anesthetic Assessment Height/Weight: Height 1.73 m Weight 82.1 kg Temp Pulse Resp BP Pulse Ox O2 Del Method 97.9 F 100 18 141/92 95 Room Air 10/25/24 12:22 10/25/24 12:22 10/25/24 12:22 10/25/24 12:22 10/25/24 12:22 10/25/24 12:22 Preop Diagnosis: screening colonoscopy Operation Date: 10/25/24 13:00 Proposed Procedures p Colonoscopy 61411, G0121, Z12.11(Not Applicable) - Juancarlos Gracia MD Familial anesthetic complications: n one Was Beta Pari taken within 24 hours: Yes Was Clonidine taken within 24 hours: N/A Last intake: Intake Last Liquid Date 10/25/24 Last Liquid Time 10:30 Last Solid Date 10/23/24 Last Solid Time 16:00 Social No alcohol and No tobacco Marijuana gummies every night for pain Exam alert, oriented x 3, clear to auscultation bilaterally and regular rate & rhythm Airway Submandibular: within normal limits Cervical ROM: within normal limits Mallampati: Class II Dentition: full Comments: Comments: missing one on bottom/superglues one on top History/ROS No significant history except as noted and No significant complaints Pulmonary Chronic Obstructive Pulmonary Disease CV/HEM Atrial Fibrillation, Arrythmia and Hypertension None reported Hepatic None reported GI Hiatal Hernia Metabolic None reported Musc/skel Lower Back Pain Neuropsych None reported Anesthetic Plan ASA status: 3 Anesthesia: MAC Risk of > 500 ml blood loss (7ml/kg in children): No Medications/Allergies Home Medications Medication Instructions Recorded Confirmed Last Taken Type ascorbate calcium (vitamin C) 500 500 mg PO DAILY 11/28/20 10/20/24 10/19/24 History mg tablet sertraline 100 mg tablet 250 mg PO DAILY 11/28/20 10/20/24 10/23/24 History trazodone 100 mg tablet 100 mg PO BEDTIME 11/28/20 10/20/24 10/19/24 History famotidine 20 mg tablet 20 mg PO BID 10/28/22 10/20/24 10/24/24 History atorvastatin 80 mg tablet 80 mg PO QPM 07/25/24 10/20/24 10/19/24 History cetirizine 10 mg tablet 10 mg PO DAILY 07/25/24 10/20/24 10/23/24 History fluticasone 250 mcg-salmeterol 50 1 inh inhalation BID 07/25/24 10/20/24 10/24/24 History mcg/dose blistr powdr for inhalation primidone 50 mg tablet 25 mg PO TID 07/25/24 10/20/24 10/23/24 History apixaban 5 mg tablet (Eliquis) 5 mg PO BID 09/08/24 10/20/24 10/21/24 History metoprolol tartrate 25 mg tablet 25 mg PO BID 30 days #60 tabs 10/10/24 10/20/24 10/25/24 Rx Marijuana Gummie 25 mg PO BEDTIME PRN Pain 10/20/24 10/20/24 10/24/24 History Allergies Allergy/AdvReac Type Severity Reaction Status Date / Time gabapentin Allergy Unknown Verified 10/10/24 10:58 Current Medications Generic Name Dose Route Start Last Admin Trade Name Freq PRN Reason Stop Dose Admin Sodium Chloride 500 mls @ 15 mls/hr 10/25/24 12:03 10/25/24 12:34 Sodium Chloride 0.9% IV 10/26/24 12:02 15 mls/hr .Q24H PRN Administration COLONOSCOPY FLUIDS PFSH Anesthesia Medical History Hypertension Anxiety Depression Thyroid cancer Hiatal hernia Hernia Traumatic tear of supraspinatus tendon of left shoulder Knee arthropathy Surgical History H/O thyroidectomy History of neck surgery Hx of colonoscopy with polypectomy 5 years ago History of hernia surgery right side Family History Father CAD (coronary artery disease) Mother Hypertension Dementia Diabetes Social History Smoking and tobacco/nicotine status: former use of tobacco/nicotine Alcohol intake: current Data Anesthesia Cardiac Studies: No Data to Display
[2024-10-25 14:38] VITALS: BP 115/77; PULSE 87; RESP 16; TEMP 36.1; O2SAT 97
--- NOTE | 2024-10-25 14:49 | ANE.PACU2 ---
Inpatient post-anesthesia follow up: Airway intact: Yes Vital signs: Temperature 97 F Pulse Rate 87 Respiratory Rate 16 Blood Pressure 115/77 Pulse Oximetry 97 Oxygen Delivery Me thod Room Air Oxygen Flow Rate Fraction of Inspir ed Oxygen Hydration adequate: Yes Nausea and vomiting: No Pain level: 2 Mental status: Baseline
[2024-10-25 14:53] VITALS: BP 124/86; PULSE 103; RESP 18; O2SAT 95
== END 2024-10-25 15:15 | disposition home or self-care (01) ==
PROVIDERS: PCP Nurse Practitioner; Visit Provider Student in an Organized Health Care Education/Training Program
PROC: 0DJD8ZZ Inspection of Lower Intestinal Tract, Via Natural or Artificial Opening Endoscopic (ICD-10-PCS; CPT 45378; principal; 2024-10-25 13:00)
PROC: 0DJD8ZZ Inspection of Lower Intestinal Tract, Via Natural or Artificial Opening Endoscopic (ICD-10-PCS; CPT 45330; 2024-10-25 13:00)
DX: Z12.11 Encounter for screening for malignant neoplasm of colon (principal); K57.30 Diverticulosis of large intestine without perforation or abscess without bleeding; I10 Essential (primary) hypertension; F41.9 Anxiety disorder, unspecified; F32.A Depression, unspecified; Z85.850 Personal history of malignant neoplasm of thyroid; Z87.891 Personal history of nicotine dependence; J44.9 Chronic obstructive pulmonary disease, unspecified; I48.91 Unspecified atrial fibrillation
CPT/HCPCS: 45330; J2704; J7040

== ENCOUNTER 2024-11-04 08:01 | Outpatient (CLI) | payer OTHER, SELFPAY ==
--- NOTE | 2024-11-04 | ECG_ITS ---
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 Interpretive Statements LEXISCAN: Procedure: At the baseline, the blood pressure was 133/90 mmHg with a heart rate of 79 bpm. The electrocardiogram showed atrial fibrillation, normal axis with normal ST and T's. The Lexiscan was infused over a period of 20 seconds. A total of 0.4 mg of Lexiscan was infused. The stress phase was continued for a total of 5 minutes. Heart rate was at the end of stress phase was 86 bpm and a blood pressure of 120/88 mmHg. The EKG at the peak infusion revealed atrial fibrillation with no significant ST-T wave changes.PVCs seen. Sestamibi was injected 20 seconds after the Lexiscan infusion. Blood pressure at the end of recovery phase was 126/89 mmHg with a heart rate of 88 bpm. Conclusion: 1. Normal EKG response to Lexiscan infusion 2. No Lexiscan induced chest pain or cardiac arrhythmia. 3. Normal blood pressure and heart rate response. 4. Sestamibi/sestamibi perfusion scan pending; see separate report. Electronically Signed On 11-19-2024 22:43:57 SCREEN PRINT OPERATOR by Kali Donnelly M.D. [email or web address]
[2024-11-04 08:12] VITALS: BMI 27.5
--- NOTE | 2024-11-04 08:12 | NMCV_ITS ---
NM rolf perf SPECT r/s* [id number] Mark Poe Age: 74 Gender: M : 1950 Exam Date: 11/04/2024 08:57 Ordering Phys: Radha Dai MD ([email or web address]) Technologist: AURORA Lopez Exam Location: [facility] Indications: cp STRESS TEST [facility] IMAGE PROTOCOL Rest/Stress 1 Lexiscan Day Radiopharmaceutical Dose (mCi) Administration Site Administered by Rest: Tc-99m 10.5 IV Riddhi Ruiz PICTURE COPYIST Sestamibi Stress:Tc-99m 32.5 IV Riddhi Hoffmanngle, PICTURE COPYIST Sestamibi Rest: 04-Nov-2024 60 Discovery 630 Stress: 04-Nov-2024 30 Discovery 630 0.4mg Lexiscan. Images obtained in supine and prone position. SPECT RESULTS Technical Quality: Good Raw Data Analysis: Normal Image Corrections: No attenuation or motion correction applied Summed Stress Score: 0 Summed Rest Score: 0 Summed Difference Score: 0 PERFUSION FINDINGS Uniform myocardial tracer uptake with no significant perfusion abnormalities. FUNCTIONAL RESULTS (calculated via Gated SPECT) Stress Image LV EF (%): 69 Stress EDV (mL):89 TID: 1.07 Stress ESV (mL):28 FUNCTIONAL FINDINGS: Segmental wall motion analysis revealing no gross wall motion abnormalities IMPRESSIONS 1`. Unremarkable Myocardial perfusion imaging 2. Normal LV ejection fraction of 69%. 3. LV wall motion analysis revealing no gross wall motion abnormalities. 4. Normal LV volume Low probability for coronary ischemia, based on the above findings Dr Radha Dai MD [facility] (Electronically Signed) Final Date: 27 November 2024 18:09 S
[2024-11-04] MEDS: regadenoson 0.4 Mg/5 ml Syringe IVP (09:23)
[2024-11-04 09:40] VITALS: BP 126/89; PULSE 84
== END 2024-11-04 08:02 | disposition home or self-care (01) ==
LOC: CDL 08:02
PROVIDERS: PCP Nurse Practitioner; Visit Provider Internal Medicine Cardiovascular Disease
DX: R07.9 Chest pain, unspecified (principal)
CPT/HCPCS: 36415; 78452; 93017; 96374; A9500; J2785

== ENCOUNTER → 2025-01-09 10:03 | Outpatient (BNVA) | payer OTHER, SELFPAY | PROVIDERS: PCP Nurse Practitioner; Visit Provider Nurse Practitioner Family | DX: I48.91 Unspecified atrial fibrillation (principal) | CPT/HCPCS: 93005 ==

== ENCOUNTER 2025-01-09 10:50 | Emergency (ER) | payer OTHER, SELFPAY ==
[2025-01-09 10:56] VITALS: BP 144/94; PULSE 116; TEMP 36.6; O2SAT 98; BMI 26.9
--- NOTE | 2025-01-09 10:56 | XR_ITS ---
WS: [id number] Exam: XR chest 1V portable [id number] Date/Time of Exam: 01/09/2025 11:10 AM Reason For Exam: palpitations Comparison 07/25/2024. The lungs are fully expanded. No consolidated infiltrates noted. Chronic interstitial changes. Mild cardiac enlargement unchanged. There may be a small hiatal hernia. Numerous old left-sided rib fractures. Partially visualized hardware in the lower C-spine. Moderate DJD of both shoulders. XR/XR chest 1V portable [id number] IMPRESSION: 1. No acute cardiopulmonary finding. Mild cardiac enlargement unchanged.
--- NOTE | 2025-01-09 11:00 | ECG_ITS ---
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 Measurements Intervals Thornton Rate: 115 P: 0 MO: 0 QRS: -29 QRSD: 98 T: 86 QT: 325 QTc: 451 Interpretive Statements ATRIAL FIBRILLATION WITH RAPID VENTRICULAR RESPONSE SEPTAL MYOCARDIAL INFARCTION , PROBABLY OLD [40+ ms Q WAVE IN V1/V2] Compared to ECG 01/09/2025 10:12:16 Ventricular premature complex(es) no longer present Aberrant conduction of supraventricular beat(s) no longer present Myocardial infarct finding still present Electronically Signed On 01-09-2025 21:00:53 CDT by Radha Dai M.D. [id number] [id number]
[2025-01-09 11:18] LABS: Basophils # 0.1 10^3/uL (0.0-0.1); Basophils % 0.7 %; Eosinophils # 0.2 10^3/uL (0.0-0.8); Eosinophils % 2.6 %; Hematocrit 45.4 % (37-53); Lymphocytes # 2.3 10^3/uL (0.8-4.8); Lymphocytes % 26.7 %; Mean Corpuscular HGB Conc 32.6 g/dL (30-55); Mean Corpuscular Hemoglobin 30.5 pg (27-33); Mean Corpuscular Volume 93.4 fl (82-101); Mean Platelet Volume 9.4 fL (7.4-10.4); Monocytes # 0.9 10^3/uL (0.2-0.9); Monocytes % 10.8 %; Neutrophils # 5.05 10^3/uL (1.8-7.7); Neutrophils % 58.9 %; Nucleated Red Blood Cells % 0 %; Platelet Count 195 10^3/cmm (157-399); Red Blood Count 4.86 10^6/uL (3.85-5.65); Red Cell Distribution Width 13.7 % (12.1-15.1); White Blood Count 8.58 10^3/uL (3.29-11.43)
[2025-01-09 11:33] LABS: INR 0.99 (0.8-1.2)
[2025-01-09 11:38] LABS: Alanine Aminotransferase 26 U/L (0-41); Albumin Level 4.2 g/dL (3.5-5.2); Alkaline Phosphatase 57 U/L (40-130); Anion Gap 16.8 (5-19); Aspartate Amino Transferase 49 U/L (0-40); Blood Urea Nitrogen 12 mg/dL (8-23); Calcium 9.6 mg/dL (8.5-10.5); Carbon Dioxide 26 mmol/L (22-29); Chloride 102 mmol/L (98-107); Creatinine Clr Calc Pharmacy 60.0383; Globulin 2.5 g/dL (1.3-4.6); Glucose 90 mg/dL (65-115); Osmolality Calculated 291 mOsm/kg (285-295); Potassium 3.8 mmol/L (3.5-5.1); Sodium 141 mmol/L (136-145); Total Bilirubin 1.4 mg/dL (0.15-1.2); Total Protein 6.7 g/dL (6.6-8.7)
[2025-01-09 12:35] VITALS: BP 150/112; PULSE 109; O2SAT 97
--- NOTE | 2025-01-09 12:40 | W.ED.ARRPALP ---
HPI - Arrhythmia/Palpitations General: Chief Complaint: Arrhythmia/Palpitations Stated Complaint: high heart rate sent from h/c Time Seen by Provider: 01/09/25 12:25 Source: patient Mode of arrival: ambulatory Limitations: no limitations History of Present Illness: 74-year-old male has a history of A-fib he states he has been out of his meds including his metoprolol over the last 3 to 4 days he is seen at the [facility] and is heart rate was in the 110s and was sent down here denies any symptoms he denies any pain he said no shortness of breath he states that he has had some palpitations he believes do not take his meds. Associated symptoms: Deny nausea or vomiting Related Data Home Medications ?Medication ?Instructions ?Recorded ?Confirmed ascorbate calcium (vitamin C) 500 500 mg PO DAILY 11/28/20 01/09/25 mg tablet sertraline 100 mg tablet 250 mg PO DAILY 11/28/20 01/09/25 trazodone 100 mg tablet 100 mg PO BEDTIME 11/28/20 01/09/25 famotidine 20 mg tablet 20 mg PO BID 10/28/22 01/09/25 atorvastatin 80 mg tablet 80 mg PO QPM 07/25/24 01/09/25 cetirizine 10 mg tablet 10 mg PO DAILY 07/25/24 01/09/25 fluticasone 250 mcg-salmeterol 50 1 inh inhalation BID 07/25/24 01/09/25 mcg/dose blistr powdr for inhalation primidone 50 mg tablet 25 mg PO TID 07/25/24 01/09/25 Marijuana Gummie 25 mg PO BEDTIME PRN Pain 10/20/24 01/09/25 Previous Rx's ?Medication ?Instructions ?Recorded metoprolol tartrate 50 mg tablet 50 mg PO BID #60 tabs 01/09/25 Allergies Allergy/AdvReac Type Severity Reaction Status Date / Time gabapentin Allergy Unknown Verified 01/09/25 11:05 Review of Systems Const: Denies: fever(s), chills, body aches or change in appetite Eyes: Denies: blurry vision or eye discomfort ENMT: Denies: throat pain or dental pain Card: Reports: palpitations and irregular heart rhythm; Denies: chest pain Resp: Denies: dyspnea GI: Denies: abdominal pain, nausea, vomiting or diarrhea Musc: Denies: neck pain or back pain Skin/Breast: Denies: rash Neuro: Denies: headache(s) PFSH ED PFSH: Medical History Hypertension Anxiety Depression Thyroid cancer Hiatal hernia Hernia Traumatic tear of supraspinatus tendon of left shoulder Knee arthropathy Surgical History H/O thyroidectomy History of neck surgery Hx of colonoscopy with polypectomy 5 years ago History of hernia surgery right side Family History Father CAD (coronary artery disease) Mother Hypertension Dementia Diabetes Social History Smoking and tobacco/nicotine status: former use of tobacco/nicotine Alcohol intake: current Physical Exam Const: COMMON NORMALS: no acute distress, patient oriented x3 and healthy appearing HENMT: COMMON NORMALS: normocephalic and atraumatic HEAD & SCALP: normocephalic and atraumatic Eye: COMMON NORMALS: conjunctivae normal CONJUNCTIVA: Yes conjunctivae normal Neck/C-Spine: COMMON NORMALS: full ROM and supple Chest: COMMONS NORMALS: normal inspection of the chest Resp: COMMON NORMALS: normal respiratory effort, No retractions, No use of accessory muscles and clear to auscultation bilaterally AUSCULTATION: clear to auscultation bilaterally Cardio: COMMON NORMALS: No murmurs present (Cardio) RATE: tachycardic RHYTHM: abnormal rhythm irregularly irregular GI: COMMON NORMALS: Normal to inspection, nondistended, normoactive bowel sounds present, Soft to palpation, non-tender and no masses PALPATION: Yes Soft to palpation Extremity: COMMON NORMALS: normal to inspection and full ROM Neuro: COMMON NORMALS: patient oriented x3, moves all extremities and no focal motor deficits Psych: COMMON NORMALS: mental status grossly normal, Normal thought process present and cooperative THOUGHT PROCESS: Normal thought process present Skin: COMMON NORMALS: no rashes or lesions noted and no wounds GENERAL SKIN EXAM: no rashes or lesions noted Course Vital Signs: Vital signs: Vital Signs Temperature 97.9 F 01/09/25 10:56 Pulse Rate 98 01/09/25 12:48 Blood Pressure 136/106 01/09/25 12:48 Pulse Oximetry 97 01/09/25 12:48 Oxygen Delivery Me thod Room Air 01/09/25 12:48 MDM - Arrhythmia/Palpitations Medical Decision Making Patient presents here with A-fib RVR has a history of A-fib he is not been taking his meds of last 4 days likely causing his tachycardia did give him a dose of Cardizem and his heart rates here in the 80s he is asymptomatic we will give him a dose of metoprolol here he states his meds should be to him by tomorrow he stable for discharge follow-up PCP return if worsening. Medical Records I reviewed the patient's medical records. Lab Data I reviewed the patient's lab results. 01/09/25 11:10 01/09/25 11:10 Radiology Impressions Chest X-Ray 01/09/25 10:56 IMPRESSION: 1. No acute cardiopulmonary finding. Mild cardiac enlargement unchanged. Laboratory Results WBC 8.58 10^3/uL (3.29-11.43) 01/09/25 11:10 RBC 4.86 10^6/uL (3.85-5.65) 01/09/25 11:10 Hgb 14.80 g/dL (11.27-16.99) 01/09/25 11:10 Hct 45.4 % (37-53) 01/09/25 11:10 MCV 93.4 fl (82-101) 01/09/25 11:10 MCH 30.5 pg (27-33) 01/09/25 11:10 MCHC 32.6 g/dL (30-55) 01/09/25 11:10 RDW 13.7 % (12.1-15.1) 01/09/25 11:10 Plt Count 195 10^3/cmm (157-399) 01/09/25 11:10 MPV 9.4 fL (7.4-10.4) 01/09/25 11:10 Neut % (Auto) 58.9 % 01/09/25 11:10 Lymph % (Auto) 26.7 % 01/09/25 11:10 [place] % (Auto) 10.8 % 01/09/25 11:10 Eos % (Auto) 2.6 % 01/09/25 11:10 Baso % (Auto) 0.7 % 01/09/25 11:10 Neut # (Auto) 5.05 10^3/uL (1.8-7.7) 01/09/25 11:10 Lymph # (Auto) 2.3 10^3/uL (0.8-4.8) 01/09/25 11:10 [place] # (Auto) 0.9 10^3/uL (0.2-0.9) 01/09/25 11:10 Eos # (Auto) 0.2 10^3/uL (0.0-0.8) 01/09/25 11:10 Baso # (Auto) 0.1 10^3/uL (0.0-0.1) 01/09/25 11:10 Nucleated RBC % (auto) 0 % 01/09/25 11:10 Nucleated RBCs # 0.0 /100WBC 01/09/25 11:10 PT 13.80 SECONDS (12.1-14.9) 01/09/25 11:10 INR 0.99 (0.8-1.2) 01/09/25 11:10 Sodium 141 mmol/L (136-145) 01/09/25 11:10 Potassium 3.8 mmol/L (3.5-5.1) 01/09/25 11:10 Chloride 102 mmol/L (98-107) 01/09/25 11:10 Carbon Dioxide 26 mmol/L (22-29) 01/09/25 11:10 Anion Gap 16.8 (5-19) 01/09/25 11:10 BUN 12 mg/dL (8-23) 01/09/25 11:10 Creatinine 1.1 mg/dL (0.7-1.2) 01/09/25 11:10 GFR Calculation Not Reportable 01/09/25 11:10 Glucose 90 mg/dL (65-115) 01/09/25 11:10 Calculated Osmolality 291 mOsm/kg (285-295) 01/09/25 11:10 Calcium 9.6 mg/dL (8.5-10.5) 01/09/25 11:10 Total Bilirubin 1.4 mg/dL (0.15-1.2) H 01/09/25 11:10 AST 49 U/L (0-40) H 01/09/25 11:10 ALT 26 U/L (0-41) 01/09/25 11:10 Alkaline Phosphatase 57 U/L (40-130) 01/09/25 11:10 Total Protein 6.7 g/dL (6.6-8.7) 01/09/25 11:10 Albumin 4.2 g/dL (3.5-5.2) 01/09/25 11:10 Globulin 2.5 g/dL (1.3-4.6) 01/09/25 11:10 All radiology interpretation(s) finalized by discharge EKG Data EKG 1: I personally reviewed and interpreted this EKG as follows: EKG interpretation date: 01/09/25 EKG interpretation time: 11:00 Interpretation: afib hr [address] elevation qrs 98 qtc 393 Other EKG comments: Chest X-Ray 01/09/25 10:56 IMPRESSION: 1. No acute cardiopulmonary finding. Mild cardiac enlargement unchanged. Discharge Plan Discharge Patient Disposition: Home Clinical Impression: Atrial fibrillation Condition: Stable Prescriptions: No Action sertraline 100 mg tablet 250 mg PO DAILY trazodone 100 mg tablet 100 mg PO BEDTIME ascorbate calcium (vitamin C) 500 mg tablet 500 mg PO DAILY famotidine 20 mg tablet 20 mg PO BID metoprolol tartrate 50 mg tablet 50 mg PO BID Qty: 60 1RF primidone 50 mg Tablet 25 mg PO TID Rx Instructions: take 1/2 tablet by mouth three times daily for tremor fluticasone propion-salmeterol 250-50 mcg/dose Blister With Device 1 inh INHALATION BID atorvastatin 80 mg Tablet 80 mg PO QPM cetirizine 10 mg Tablet 10 mg PO DAILY Marijuana Gummie 25 mg PO BEDTIME PRN (Reason: Pain) Discharge Orders: Discharge ED (Routine); Ordered 01/09/25 Ordered By: Gautam Jolley Referrals: Karen Mcclendon FNP [Primary Care Provider] - Discharge Diet: Advance as tolerated Discharge Activity: Resume usual activity Patient Instructions: A-fib (Atrial Fibrillation) (ED) Print Language: Kuwaiti Coding Level of Care Code ED Health And Safety Advisor for Zen Prescott
[2025-01-09] MEDS: dilTIAZem 5 mg/mL SDV 5 mL 15 MG IVP (12:42)
[2025-01-09 12:48] VITALS: BP 136/106; PULSE 98; O2SAT 97
[2025-01-09 13:15] VITALS: BP 132/96; PULSE 80; O2SAT 97
[2025-01-09] MEDS: metoprolol tartrate 50 mg Tablet PO (13:16)
[2025-01-09 13:22] VITALS: BP 136/96; PULSE 87; O2SAT 94
== END 2025-01-09 13:23 | disposition home or self-care (01) ==
PROVIDERS: Emergency Provider Emergency Medicine; PCP Nurse Practitioner
DX: I48.91 Unspecified atrial fibrillation (principal); Z87.891 Personal history of nicotine dependence; I10 Essential (primary) hypertension; Z85.850 Personal history of malignant neoplasm of thyroid
CPT/HCPCS: 36415; 71045; 80053; 85025; 85610; 93005; 96374; 99214; 99285; J3490; J9999

== ENCOUNTER → 2025-01-20 09:51 | Outpatient (BNVA) | payer OTHER, SELFPAY | PROVIDERS: PCP Nurse Practitioner; Visit Provider Internal Medicine Cardiovascular Disease | DX: I48.91 Unspecified atrial fibrillation (principal); I10 Essential (primary) hypertension; E78.5 Hyperlipidemia, unspecified; E11.9 Type 2 diabetes mellitus without complications; Z87.891 Personal history of nicotine dependence | CPT/HCPCS: 99214 ==

== ENCOUNTER 2025-02-24 09:22 | Inpatient (IN) | payer OTHER, MEDICARE, SELFPAY ==
[2025-02-24] VITALS (15 sets, daily range): BP systolic 111–142; BP diastolic 58–92; PULSE 65–109; RESP 17–22; TEMP 36.7–37.2; O2SAT 84–99; BMI 29.7; BMI 28.8
--- NOTE | 2025-02-24 09:26 | XR_ITS ---
WS: [email or web address] XR chest 1V portable [id number] REASON FOR EXAM: Hemoptysis FINDINGS: Examination is significantly rotated to the left. There is moderate tortuosity and ectasia of the thoracic aorta with calcified aortic arch. There is a hiatal hernia. There is mild cardiomegaly. There are chronic coarse interstitial lung opacities. Compared to the previous examination of 01/09/2025, there are increased reticular interstitial and groundglass densities in both lower lung cadena and a more focal area of ill-defined opacity in the right upper mid lung field. XR/XR chest 1V portable [id number] IMPRESSION: Significant interval change compared to the previous examination which would ap pear to represent multifocal pneumonitis. This may be superimposed on congestiv e heart failure. There is a CT scan of the chest to follow.
--- NOTE | 2025-02-24 09:36 | W.ED.SOB ---
HPI - SOB/Dyspnea General: Chief Complaint: Shortness of Breath/Dyspnea Stated Complaint: Coughing up blood Time Seen by Provider: 02/24/25 09:26 Source: patient Mode of arrival: ambulatory Limitations: no limitations History of Present Illness: HPI Narrative: Patient is a nice 74-year-old male with a history of atrial fibrillation, hypertension, dyslipidemia, COPD, and type 2 diabetes here for complaints of dyspnea and hemoptysis. Patient states he began noticing bright red blood that he was coughing up around 4 PM yesterday evening. He states he woke up this morning and noticed further hemoptysis. He does feel short of breath. He states he does have a history of COPD so this is somewhat chronic but feels like he does have worsening than normal. States he feels like he has a rib out of place on the right side. He does not complain of any chest pain. States he has not smoked since 1987. He is not having any leg swelling or weight gain. Vital signs are stable upon arrival. MD elicited complaint: shortness of breath Pertinent past history: COPD Onset (ago): day(s) (yesterday) Exacerbating factors: exertion Relieving factors: nothing Known history of: COPD and other (atrial fib) Associated symptoms: Reports chest pain (R chest wall pain) and hemoptysis; Deny abdominal pain, chest congestion, dizziness, extremity pain, fever(s), lightheadedness, nausea, orthopnea, palpitations, syncope or vomiting Treatment prior to arrival: none Related Data Home Medications ?Medication ?Instructions ?Recorded ?Confirmed ascorbate calcium (vitamin C) 500 500 mg PO DAILY 11/28/20 02/24/25 mg tablet sertraline 100 mg tablet 250 mg PO DAILY 11/28/20 02/24/25 trazodone 100 mg tablet 100 mg PO BEDTIME 11/28/20 02/24/25 famotidine 20 mg tablet 20 mg PO BID 10/28/22 02/24/25 atorvastatin 80 mg tablet 80 mg PO QPM 07/25/24 02/24/25 cetirizine 10 mg tablet 10 mg PO DAILY 07/25/24 02/24/25 fluticasone 250 mcg-salmeterol 50 1 inh inhalation BID 07/25/24 02/24/25 mcg/dose blistr powdr for inhalation primidone 50 mg tablet 25 mg PO TID 07/25/24 02/24/25 Marijuana Gummie 25 mg PO BEDTIME PRN Pain 10/20/24 02/24/25 calcium carbonate 500 mg PO DAILY 01/09/25 02/24/25 cholecalciferol (vitamin D3) 50 50 mcg PO DAILY 01/09/25 02/24/25 mcg (2,000 unit) capsule (D3-2000) fluticasone propionate 50 2 spray intranasal DAILY 01/09/25 02/24/25 mcg/actuation nasal spray,suspension edoxaban 30 mg tablet 30 mg PO DAILY 02/24/25 02/24/25 Previous Rx's ?Medication ?Instructions ?Recorded metoprolol tartrate 50 mg tablet 75 mg (1.5 x 50 mg) PO BID #260 01/20/25 tabs Allergies Allergy/AdvReac Type Severity Reaction Status Date / Time gabapentin Allergy Unknown Verified 01/20/25 10:00 Review of Systems Const: Denies: fever(s), chills, body aches, fatigue or malaise Eyes: Denies: change in vision or blurry vision Card: Reports: chest pain (R chest wall pain) and dyspnea on exertion; Denies: palpitations, irregular heart rhythm, edema, swelling of feet/ankles, lightheadedness, syncope, pre-syncope, orthopnea, leg pain with exertion or acrocyanosis Resp: Reports: dyspnea (acute on chronic-COPD) and hemoptysis; Denies: productive cough, non-productive cough, wheezing, stridor, pain on inspiration or chest congestion GI: Denies: abdominal pain, nausea, vomiting, heartburn or diarrhea : Denies: difficulty urinating or dysuria Musc: Denies: neck pain, back pain, extremity pain, extremity swelling or joint pain Skin/Breast: Denies: rash Neuro: Denies: headache(s), numbness in extremities, weakness in extremities, sensory changes or dizziness PFSH ED PFSH: Medical History Hypertension Anxiety Depression Thyroid cancer Hiatal hernia Hernia Traumatic tear of supraspinatus tendon of left shoulder Knee arthropathy Surgical History H/O thyroidectomy History of neck surgery Hx of colonoscopy with polypectomy 5 years ago History of hernia surgery right side Family History Father CAD (coronary artery disease) Mother Hypertension Dementia Diabetes Social History Smoking and tobacco/nicotine status: former use of tobacco/nicotine Alcohol intake: current Physical Exam Const: COMMON NORMALS: no acute distress, average body habitus, patient oriented x3, no limitations, healthy appearing, alert and well nourished GENERAL APPEARANCE: cooperative ORIENTATION/CONSCIOUSNESS: Yes awake, Yes oriented to person, Yes oriented to place and Yes oriented to time HENMT: COMMON NORMALS: normocephalic and atraumatic HEAD & SCALP: normal to inspection, normocephalic and atraumatic FACE & SINUS: normal facial exam Neck/C-Spine: COMMON NORMALS: full ROM, no lymphadenopathy, supple and no meningeal signs Chest: COMMONS NORMALS: normal inspection of the chest OTHER: mild tenderness R posterior chest wall Resp: COMMON NORMALS: normal respiratory effort and clear to auscultation bilaterally AUSCULTATION: clear to auscultation bilaterally Cardio: COMMON NORMALS: regular rate and regular rhythm RATE: regular rate RHYTHM: regular rhythm GI: COMMON NORMALS: Normal to inspection, nondistended, normoactive bowel sounds present, Soft to palpation, non-tender, No hepatosplenomegaly present and no masses PALPATION: Yes Soft to palpation and Yes No hepatosplenomegaly present : COMMON NORMALS: Yes no CVA tenderness BLADDER/KIDNEY EXAM: Yes no CVA tenderness Back/Pelvis: COMMON NORMALS: no CVA tenderness and thoracic and lumbar spine normal to inspection Extremity: COMMON NORMALS: normal to inspection, capillary refill normal, no clubbing, cyanosis or edema, no calf tenderness and no pedal edema GENERAL: Yes normal exam except as noted Neuro: COMMON NORMALS: patient oriented x3, moves all extremities, no focal motor deficits and no sensory deficits noted SENSORIUM/ORIENTATION: Yes alert, Yes oriented to person, Yes oriented to place and Yes oriented to time MENINGEAL SIGNS: Yes no meningeal signs Skin: COMMON NORMALS: no rashes or lesions noted GENERAL SKIN EXAM: no rashes or lesions noted Course Vital Signs: Vital signs: Vital Signs Temperature 98.3 F 02/24/25 09:32 Pulse Rate 91 02/24/25 09:32 Respiratory Rate 18 02/24/25 09:32 Blood Pressure 120/58 02/24/25 09:32 Pulse Oximetry 93 02/24/25 09:32 Oxygen Delivery Me thod Room Air 02/24/25 09:32 MDM - SOB/Dyspnea Medical Decision Making Patient is a nice 74-year-old male here for dyspnea and hemoptysis. Vital signs are stable. Oxygen on the lower side at 92-93%. On his CXR today he does have significant interval change compared to previous examination in December possibly representing multifocal pneumonitis but could have superimposed congestive heart failure. Patient does have a history of atrial fibrillation. There is documentation that at some point he was without anticoagulation therefore CTA imaging was obtained for further clarification on abnormal CXR as well as PE rule out. On his CTA he has cardiomegaly with right heart dysfunction, patchy infiltrates bilaterally, interstitial edema, and bilateral small pleural effusions. Stress testing/perfusion scanning back in Oct showed an EF of 69%. Was supposed to have echo outpatient but this was never completed. Spoke to Dr. Sheth and we will admit to hospital for new onset CHF. Question pneumonia but white count is normal as is procal and lactate. Will hold off on abx until Domenic assesses. Medical Records I reviewed the patient's medical records. Lab Data I reviewed the patient's lab results. 02/24/25 09:41 02/24/25 09:41 Labs/Radiology: Radiology Impressions Chest X-Ray 02/24/25 09:26 IMPRESSION: Significant interval change compared to the previous examination which would appear to represent multifocal pneumonitis. This may be superimposed on congestive heart failure. There is a CT scan of the chest to follow. Chest CTA 02/24/25 09:50 IMPRESSION: 1. No evidence of pulmonary embolus 2. Cardiomegaly with RIGHT heart dysfunction 3. Patchy infiltrates worse in the RIGHT upper lobe described above. Interstitial edema 4. Small RIGHT greater than LEFT pleural effusions. Laboratory Results WBC 11.34 10^3/uL (3.29-11.43) 02/24/25 09:41 RBC 4.48 10^6/uL (3.85-5.65) 02/24/25 09:41 Hgb 13.60 g/dL (11.27-16.99) 02/24/25 09:41 Hct 42.3 % (37-53) 02/24/25 09:41 MCV 94.4 fl (82-101) 02/24/25 09:41 MCH 30.4 pg (27-33) 02/24/25 09:41 MCHC 32.2 g/dL (30-55) 02/24/25 09:41 RDW 13.7 % (12.1-15.1) 02/24/25 09:41 Plt Count 192 10^3/cmm (157-399) 02/24/25 09:41 MPV 10.4 fL (7.4-10.4) 02/24/25 09:41 Neut % (Auto) 68.9 % 02/24/25 09:41 Lymph % (Auto) 19.3 % 02/24/25 09:41 [place] % (Auto) 9.8 % 02/24/25 09:41 Eos % (Auto) 1.2 % 02/24/25 09:41 Baso % (Auto) 0.5 % 02/24/25 09:41 Neut # (Auto) 7.81 10^3/uL (1.8-7.7) H 02/24/25 09:41 Lymph # (Auto) 2.2 10^3/uL (0.8-4.8) 02/24/25 09:41 [place] # (Auto) 1.1 10^3/uL (0.2-0.9) H 02/24/25 09:41 Eos # (Auto) 0.1 10^3/uL (0.0-0.8) 02/24/25 09:41 Baso # (Auto) 0.1 10^3/uL (0.0-0.1) 02/24/25 09:41 Nucleated RBC % (auto) 0 % 02/24/25 09:41 Nucleated RBCs # 0.0 /100WBC 02/24/25 09:41 PT 15.30 SECONDS (12.1-14.9) H 02/24/25 09:41 INR 1.13 (0.8-1.2) 02/24/25 09:41 APTT 30.2 SECONDS (23.9-36.7) 02/24/25 09:41 D-Dimer 0.81 ug/mLFEU (0-0.59) H 02/24/25 09:41 Sodium 137 mmol/L (136-145) 02/24/25 09:41 Potassium 4.0 mmol/L (3.5-5.1) 02/24/25 09:41 Chloride 104 mmol/L (98-107) 02/24/25 09:41 Carbon Dioxide 23 mmol/L (22-29) 02/24/25 09:41 Anion Gap 14.0 (5-19) 02/24/25 09:41 BUN 15 mg/dL (8-23) 02/24/25 09:41 Creatinine 1.3 mg/dL (0.7-1.2) H 02/24/25 09:41 GFR Calculation Not Reportable 02/24/25 09:41 Glucose 142 mg/dL (65-115) H 02/24/25 09:41 Calculated Osmolality 287 mOsm/kg (285-295) 02/24/25 09:41 Lactic Acid 1.5 mmol/L (0.5-2.2) 02/24/25 09:41 Calcium 8.4 mg/dL (8.5-10.5) L 02/24/25 09:41 Total Bilirubin 1.2 mg/dL (0.15-1.2) 02/24/25 09:41 AST 28 U/L (0-40) 02/24/25 09:41 ALT 21 U/L (0-41) 02/24/25 09:41 Alkaline Phosphatase 70 U/L (40-130) 02/24/25 09:41 Troponin T Baseline 33 ng/L (0-15) H 02/24/25 09:41 Troponin T 120 Minute 29.73 ng/L (0-15) H 02/24/25 11:25 Delta Troponin T -3.27 ABS# (0-10) L 02/24/25 11:25 NT-Pro-B Natriuret Pep 3846 pg/mL (0-450) H 02/24/25 09:41 Total Protein 6.4 g/dL (6.6-8.7) L 02/24/25 09:41 Albumin 3.5 g/dL (3.5-5.2) 02/24/25 09:41 Globulin 2.9 g/dL (1.3-4.6) 02/24/25 09:41 Procalcitonin 0.06 ng/mL (0-0.5) 02/24/25 09:41 All radiology interpretation(s) finalized by discharge Discharge Plan Discharge Patient Disposition: Admitted As Inpatient Clinical Impression: CHF (congestive heart failure), Hemoptysis Condition: Stable Coding Level of Care Code ED Renal Dialysis Technician for [facility]
[2025-02-24 09:47] LABS: Basophils # 0.1 10^3/uL (0.0-0.1); Basophils % 0.5 %; Eosinophils # 0.1 10^3/uL (0.0-0.8); Eosinophils % 1.2 %; Hematocrit 42.3 % (37-53); Lymphocytes # 2.2 10^3/uL (0.8-4.8); Lymphocytes % 19.3 %; Mean Corpuscular HGB Conc 32.2 g/dL (30-55); Mean Corpuscular Hemoglobin 30.4 pg (27-33); Mean Corpuscular Volume 94.4 fl (82-101); Mean Platelet Volume 10.4 fL (7.4-10.4); Monocytes # 1.1 10^3/uL (0.2-0.9); Monocytes % 9.8 %; Neutrophils # 7.81 10^3/uL (1.8-7.7); Neutrophils % 68.9 %; Nucleated Red Blood Cells % 0 %; Platelet Count 192 10^3/cmm (157-399); Red Blood Count 4.48 10^6/uL (3.85-5.65); Red Cell Distribution Width 13.7 % (12.1-15.1); White Blood Count 11.34 10^3/uL (3.29-11.43)
--- NOTE | 2025-02-24 09:50 | CT_ITS ---
WS: [id number] CTA OF THE CHEST WITH PULMONARY EMBOLISM PROTOCOL TECHNIQUE: High-resolution contrast enhanced CTA of the chest with coronal and sagittal reformatted images with pulmonary embolism protocol. MIP images are also reviewed. CLINICAL INFORMATION: SOB, hemoptysis, abnormal CXR COMPARISON: None. DLP: 462.[address] scans at [facility] use at least one of these dose optimization techniques: automated exposure control; mA and/or kV adjustment per patient size (includes targeted exams where dose is matched to clinical indication); or iterative reconstruction. FINDINGS: Proximal main pulmonary arteries are normal. Normal segmental and subsegmental pulmonary arteries. No evidence of pulmonary embolus. Cardiomegaly. Enlarged LEFT ventricle. Aortic calcification. Moderate esophageal hiatal hernia. Patchy infiltrates in the RIGHT upper lobe with partial consolidation. Hazy groundglass infiltrates within both lungs. Small RIGHT greater than LEFT pleural effusions. Reflux into the hepatic veins suggestive of RIGHT heart dysfunction. Chronic thoracic kyphosis. Tiny cysts in the liver. CT/CT angio chest PE protcl [id number] IMPRESSION: 1. No evidence of pulmonary embolus 2. Cardiomegaly with RIGHT heart dysfunction 3. Patchy infiltrates worse in the RIGHT upper lobe described above. Interstit ial edema 4. Small RIGHT greater than LEFT pleural effusions.
--- NOTE | 2025-02-24 09:50 | ECG_ITS ---
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 Measurements Intervals [place] Rate: 81 P: 0 [place]: 0 QRS: -35 QRSD: 96 T: 55 QT: 366 QTc: 427 Interpretive Statements ATRIAL FIBRILLATION WITH ABERRANT CONDUCTION OR VENTRICULAR PREMATURE COMPLEXES LEFT AXIS DEVIATION [QRS AXIS < -30] SEPTAL MYOCARDIAL INFARCTION , OF INDETERMINATE AGE [40+ ms Q WAVE IN V1/V2] Compared to ECG 01/09/2025 11:00:42 Ventricular premature complex(es) now present Aberrant conduction of supraventricular beat(s) now present Left-axis deviation now present Myocardial infarct finding still present Electronically Signed On 02-24-2025 13:32:30 CDT by Kali Donnelly M.D. [email or web address]
[2025-02-24 10:05] LABS: Alanine Aminotransferase 21 U/L (0-41); Albumin Level 3.5 g/dL (3.5-5.2); Alkaline Phosphatase 70 U/L (40-130); Aspartate Amino Transferase 28 U/L (0-40); Blood Urea Nitrogen 15 mg/dL (8-23); Calcium 8.4 mg/dL (8.5-10.5); Carbon Dioxide 23 mmol/L (22-29); Chloride 104 mmol/L (98-107); Creatinine Clr Calc Pharmacy 51.4814; Globulin 2.9 g/dL (1.3-4.6); Glucose 142 mg/dL (65-115); Osmolality Calculated 287 mOsm/kg (285-295); Sodium 137 mmol/L (136-145); Total Bilirubin 1.2 mg/dL (0.15-1.2); Total Protein 6.4 g/dL (6.6-8.7)
[2025-02-24 10:07] LABS: Lactic Sepsis W/Reflex 1.5 mmol/L (0.5-2.2)
[2025-02-24 10:08] LABS: INR 1.13 (0.8-1.2)
[2025-02-24 10:09] LABS: Partial Thromboplastin Time 30.2 SECONDS (23.9-36.7)
[2025-02-24 10:12] LABS: Procalcitonin 0.06 ng/mL (0-0.5)
[2025-02-24 10:16] LABS: NT Pro B Type Natriuretic Pept 3846 pg/mL (0-450)
[2025-02-24 10:17] LABS: D Dimer 0.81 ug/mLFEU (0-0.59)
[2025-02-24 10:25] LABS: Troponin(5th) Baseline 33 ng/L (0-15)
[2025-02-24] MEDS: iohexol 350 mg/mL 500 mL Btl (per mL) IV (10:54)
[2025-02-24 12:01] LABS: Troponin 5 2HR 29.73 ng/L (0-15)
[2025-02-24 12:04] LABS: Troponin 5 2HR Delta -3.27 ABS# (0-10)
[2025-02-24 12:43] LABS: Erythrocyte Sedimentation Rate 6 mm/hr (0-10)
[2025-02-24 12:50] LABS: C Reactive Protein 18.9 mg/L (0.0-4.9)
--- NOTE | 2025-02-24 12:58 | USCV_ITS ---
Mark Poe Age: 74 Gender: M : 1950 Exam Date: 02/24/2025 13:59 Ordering Phys: Tiam Sheth MD Technologist: Exam Location: [facility] Indication: cp sob BP: 120 / 60 HR: 107 Rhythm: Sinus Technical Quality: Adequate MEASUREMENTS (Male / Female) Normal Values 2D ECHO LV Diastolic Diameter PLAX 4.9 cm 4.2 - 5.9 / 3.9 - 5.3 cm IVS Diastolic Thickness 1.3 cm 0.6 - 1.0 / 0.6 - 0.9 cm IVS Systolic Thickness 1.5 cm LVPW Diastolic Thickness 1.4 cm 0.6 - 1.0 / 0.6 - 0.9 cm LVPW Systolic Thickness 1.7 cm LVOT Diameter 2.0 cm LV Ejection Fraction 2D Teich 66.5 % LV Ejection Fraction MOD 4C 59.2 % LV Ejection Fraction MOD 2C 54.7 % LV Ejection Fraction 2C AL 55.2 % LA Diameter 4.5 cm RA Systolic Volume 4C AL 16.7 ml RA Systolic Volume 4C MOD 16.5 ml LA Sys Volume AL 50.8 cm cubed LA Sys Volume Index AL 24.6 cm cubed/m squared Aorta at Sinotubular Diameter 3.1 cm IVC Diameter 2.4 cm DOPPLER AV Peak Velocity 190.7 cm/s LVOT Peak Velocity 94.0 cm/s AV Area Cont Eq vti 1.6 cm squared AV Area Cont Eq pk 1.6 cm squared MV Peak Velocity 177.0 cm/s MV Area PHT 4.7 cm squared Mitral E to A Ratio 151.0 TV Peak Velocity 319.5 cm/s TR Peak Velocity 340.0 cm/s TR Peak Gradient 46.2 mmHg TV Peak E Velocity 99.0 cm/s PV Peak Velocity 101.0 cm/s FINDINGS Left Ventricle Normal left ventricular size and systolic function, EF 55%.no regional wall motion abnormalities. Right Ventricle The right ventricle is normal in size and function. Right Atrium Mildly increased right atrial size. Left Atrium Mildly increased left atrial size. Mitral Valve Mildly thickened mitral valve. Moderate-severe mitral valve regurgitation. Aortic Valve Moderate aortic valve calcification. Mild aortic valve regurgitation. Tricuspid Valve Moderate tricuspid valve regurgitation. Estimated pulmonary artery peak systolic pressure 52 mmHg Pulmonic Valve No gross abnormalities noted Pericardium Normal pericardium without effusion. Aorta Normal ascending aorta dimension. IVC Normal inferior vena cava. CONCLUSIONS Normal left ventricular size and systolic function, EF 55%.no regional wall motion abnormalities. Mild biatrial enlargement. Mildly thickened mitral valve. Moderate-severe mitral valve regurgitation. Moderate aortic valve calcification. Mild aortic valve regurgitation. Moderate tricuspid valve regurgitation. Estimated pulmonary artery peak systolic pressure 52 mmHg. There is no pericardial effusion. There are no intracardiac masses. No similar previous studies are available for comparison Dr Radha Dai MD FAC (Electronically Signed) Final Date: 24 Feb 2025 18:53 S
--- NOTE | 2025-02-24 13:00 | PM.HP ---
Providers/Chief Complaint Primary Care Provider: JERAD Ruffin Chief Complaint: Coughing up blood History of Present Illness Mark Poe is a 74 year old male Review of Systems Const: Denies: fever(s) or chills Eyes: Denies: change in vision Card: Denies: chest pain Resp: Reports: dyspnea and non-productive cough GI: Denies: abdominal pain : Denies: flank pain Medications/Allergies Home Medications ?Medication ?Instructions ?Recorded ?Confirmed ?Last Taken ?Type ascorbate calcium (vitamin C) 500 500 mg PO DAILY 11/28/20 02/24/25 02/24/25 History mg tablet sertraline 100 mg tablet 250 mg PO DAILY 11/28/20 02/24/25 02/24/25 History trazodone 100 mg tablet 100 mg PO BEDTIME 11/28/20 02/24/25 02/23/25 History famotidine 20 mg tablet 20 mg PO BID 10/28/22 02/24/25 02/24/25 History atorvastatin 80 mg tablet 80 mg PO QPM 07/25/24 02/24/25 02/23/25 History cetirizine 10 mg tablet 10 mg PO DAILY 07/25/24 02/24/25 02/24/25 History fluticasone 250 mcg-salmeterol 50 1 inh inhalation BID 07/25/24 02/24/25 02/24/25 History mcg/dose blistr powdr for inhalation primidone 50 mg tablet 25 mg PO TID 07/25/24 02/24/25 02/24/25 History Marijuana Gummie 25 mg PO BEDTIME PRN Pain 10/20/24 02/24/25 02/23/25 History calcium carbonate 500 mg PO DAILY 01/09/25 02/24/25 02/24/25 History cholecalciferol (vitamin D3) 50 50 mcg PO DAILY 01/09/25 02/24/25 02/24/25 History mcg (2,000 unit) capsule (D3-2000) fluticasone propionate 50 2 spray intranasal DAILY 01/09/25 02/24/25 Unknown History mcg/actuation nasal spray,suspension metoprolol tartrate 50 mg tablet 75 mg (1.5 x 50 mg) PO BID #260 01/20/25 02/24/25 02/24/25 Rx tabs edoxaban 30 mg tablet 30 mg PO DAILY 02/24/25 02/24/25 02/24/25 History Allergies Allergy/AdvReac Type Severity Reaction Status Date / Time gabapentin Allergy Unknown Verified 01/20/25 10:00 PFSH Acute PFSH: Medical History Hypertension Anxiety Depression Thyroid cancer Hiatal hernia Hernia Traumatic tear of supraspinatus tendon of left shoulder Knee arthropathy Surgical History H/O thyroidectomy History of neck surgery Hx of colonoscopy with polypectomy 5 years ago History of hernia surgery right side Family History Father CAD (coronary artery disease) Mother Hypertension Dementia Diabetes Social History Smoking and tobacco/nicotine status: former use of tobacco/nicotine Alcohol intake: current Vitals/I&O/Wt Last Vital Signs Temp 98.3 F 02/24/25 09:32 Pulse 91 02/24/25 09:32 Resp 18 02/24/25 09:32 BP 120/58 02/24/25 09:32 Pulse Ox 93 02/24/25 09:32 O2 Del Method Room Air 02/24/25 09:32 Weight last 48 hrs Weight 86.183 kg Physical Exam Const: COMMON NORMALS: no acute distress and patient oriented x3 Eye: COMMON NORMALS: Equal, round and reactive pupils present and EOMs intact bilaterally Resp: COMMON NORMALS: normal respiratory effort, No retractions, No use of accessory muscles and clear to auscultation bilaterally AUSCULTATION: crackles and wheezes Cardio: COMMON NORMALS: regular rate, regular rhythm, S1 normal heart sound present and S2 normal heart sound present RATE: regular rate RHYTHM: regular rhythm HEART SOUNDS: S1 normal heart sound present and S2 normal heart sound present GI: COMMON NORMALS: Normal to inspection, nondistended, normoactive bowel sounds present, Soft to palpation and non-tender Extremity: COMMON NORMALS: no pedal edema Neuro: COMMON NORMALS: patient oriented x3, CN's II-XII intact bilaterally and moves all extremities Psych: COMMON NORMALS: mental status grossly normal Data 02/24/25 09:41 02/24/25 09:41 A&P Assessment and plan (1) CHF (congestive heart failure): (2) New onset atrial fibrillation: (3) Pneumonia: (4) T2DM (type 2 diabetes mellitus): (5) Hemoptysis: Plan Scant hemoptysis - Will hold edoxaban - Monitor closely for recurrent hemoptysis - Scheduled Tessalon Perles 100 3 times daily Right upper lobe pneumonia, - Concerns for aspiration pneumonia - Aspiration precautions - Dysphagia level 4 diet, moderately thickened - Reviewed cultures - Rocephin, Zithromycin CHF exacerbation, systolic, diastolic - Lasix 40 twice daily - Cardiac echo NSTEMI - Show EKGs, troponins, telemetry monitoring Type 2 diabetes mellitus, low-dose sliding scale DNR/DNI, confirmed with patient multiple times SCDs for DVT prophylaxis PDMP PDMP Reviewed: Not Reviewed Attestations Medical Necessity Statement*: Patient requires hospitalization for her pneumonia, CHF, hemoptysis, inpatient, given 2 midnights Diagnoses CHF (congestive heart failure) I50.9 Heart failure chronicity: acute Heart failure type: unspecified New onset atrial fibrillation I48.91 Pneumonia J18.9 Type 2 diabetes mellitus without complication, without long-term current use of insulin E11.9 Diabetes 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
[2025-02-24 15:51] LABS: Estmated Average Glucose 114; Hemoglobin A1C 5.6 % (4.0-6.0)
[2025-02-24] MEDS: FUROsemide 10 mg/mL SDV 4mL 40 MG IVP (15:52)
[2025-02-24] MEDS: pantoprazole 40 mg SDV IVP (15:53)
[2025-02-24] MEDS: cefTRIAXone 1,000 mg SDV 1000 MG IVP (15:53)
[2025-02-24] MEDS: primidone 50 mg Tablet 25 MG PO ×2 (15:53→20:36)
[2025-02-24] MEDS: benzonatate 100 mg Capsule PO ×2 (15:53→23:25)
[2025-02-24] MEDS: AZITHROMYCIN ADD-Vantage 500 MG in 0.9% NaCl ADD-Vantage 250 ML 250 MG IV (15:54)
[2025-02-24 15:58] LABS: Chol HDL Ratio 2.59 mg/dL (1.0-5.00); Cholesterol 96 mg/dL (0-200); HDL Cholesterol 37 mg/dL (60-100); LDL Cholesterol Calculated 44 mg/dL (50-129); LDL HDL Ratio 1.19 RATIO (0.00-3.22); Thyroid Stimulating Hormone 1.91 uIU/mL (0.27-4.20); Triglycerides 74 mg/dL (0-150)
[2025-02-24] MEDS: ipratropium-albuterol 3 mL Neb INHALATION ×2 (16:28→20:24)
--- NOTE | 2025-02-24 16:34 | ECG_ITS ---
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: : 1950 Requested By: Marie Arredondo Order Number: [id number] Reading MD: DAYAN GREWAL Measurements Intervals [place] Rate: 93 P: 0 [place]: 0 QRS: -45 QRSD: 102 T: 90 QT: 343 QTc: 427 Interpretive Statements ATRIAL FIBRILLATION LEFT AXIS DEVIATION [QRS AXIS < -30] NONSPECIFIC ST & T-WAVE ABNORMALITY Compared to ECG 02/24/2025 12:17:22 T-wave abnormality now present Ventricular premature complex(es) no longer present Aberrant conduction of supraventricular beat(s) no longer present Myocardial infarct finding no longer present Electronically Signed On 02-25-2025 16:25:11 CDT by DAYAN GREWAL [email or web address]
[2025-02-24 17:02] LABS: Troponin 5 6HR 25.95 ng/L (0-15)
[2025-02-24 17:07] LABS: Troponin 5 6HR Delta -7.05 ng/L (0-12)
[2025-02-24] MEDS: atorvastatin 40 mg Tablet 80 MG PO (17:36)
[2025-02-24] MEDS: metoprolol tartrate 50 mg Tablet 75 MG PO (17:36)
[2025-02-24] MEDS: budesonide 0.5 mg/2 mL Neb INHALATION (20:24)
[2025-02-24] MEDS: trazodone 100 mg Tablet PO (20:36)
[2025-02-25] VITALS (12 sets, daily range): BP systolic 104–137; BP diastolic 68–75; PULSE 85–116; RESP 16–20; TEMP 36.9–37.5; O2SAT 91–96
[2025-02-25] MEDS: FUROsemide 10 mg/mL SDV 4mL 40 MG IVP ×2 (03:40→14:35)
[2025-02-25 03:59] LABS: Basophils # 0.1 10^3/uL (0.0-0.1); Basophils % 0.4 %; Eosinophils # 0.1 10^3/uL (0.0-0.8); Eosinophils % 0.4 %; Lymphocytes # 2.3 10^3/uL (0.8-4.8); Lymphocytes % 19.8 %; Mean Corpuscular HGB Conc 32.8 g/dL (30-55); Mean Corpuscular Hemoglobin 30.3 pg (27-33); Mean Corpuscular Volume 92.4 fl (82-101); Mean Platelet Volume 11.4 fL (7.4-10.4); Monocytes # 1.4 10^3/uL (0.2-0.9); Neutrophils # 7.62 10^3/uL (1.8-7.7); Nucleated Red Blood Cells % 0 %; Platelet Count 177 10^3/cmm (157-399); Red Blood Count 4.33 10^6/uL (3.85-5.65); Red Cell Distribution Width 13.6 % (12.1-15.1); White Blood Count 11.37 10^3/uL (3.29-11.43)
[2025-02-25 04:23] LABS: Alanine Aminotransferase 17 U/L (0-41); Albumin Level 3.2 g/dL (3.5-5.2); Alkaline Phosphatase 69 U/L (40-130); Anion Gap 13.8 (5-19); Aspartate Amino Transferase 24 U/L (0-40); Blood Urea Nitrogen 14 mg/dL (8-23); Calcium 8.4 mg/dL (8.5-10.5); Carbon Dioxide 26 mmol/L (22-29); Chloride 100 mmol/L (98-107); Creatinine Clr Calc Pharmacy 60.9615; Globulin 2.9 g/dL (1.3-4.6); Glucose 86 mg/dL (65-115); Osmolality Calculated 282 mOsm/kg (285-295); Potassium 3.8 mmol/L (3.5-5.1); Sodium 136 mmol/L (136-145); Total Bilirubin 1.4 mg/dL (0.15-1.2); Total Protein 6.1 g/dL (6.6-8.7)
[2025-02-25] MEDS: benzonatate 100 mg Capsule PO ×2 (07:59→14:35)
[2025-02-25] MEDS: metoprolol tartrate 50 mg Tablet 75 MG PO ×2 (07:59→17:38)
[2025-02-25] MEDS: primidone 50 mg Tablet 25 MG PO ×3 (07:59→19:57)
[2025-02-25] MEDS: sertraline 100 mg Tablet 250 MG PO (07:59)
[2025-02-25] MEDS: ipratropium-albuterol 3 mL Neb INHALATION ×4 (08:59→19:59)
[2025-02-25] MEDS: budesonide 0.5 mg/2 mL Neb INHALATION ×2 (08:59→19:59)
--- NOTE | 2025-02-25 13:27 | P.PN_ITS ---
Subjective 2 Subjective: Patient was seen this morning, he denies any chest pain, palpitations, his shortness of breath is improving, no fevers, no chills, diuresed over 3 L overnight, no hemoptysis Vitals/I&O/Wt Last Vital Signs Temp 98.9 F 02/25/25 11:45 Pulse 110 H 02/25/25 11:59 Resp 18 02/25/25 11:59 BP 104/68 02/25/25 11:45 Pulse Ox 93 02/25/25 11:59 O2 Del Method Nasal Cannula 02/25/25 11:59 O2 Flow Rate 5 02/25/25 11:59 02/24/25 02/25/25 02/25/25 22:59 06:59 14:59 Intake Total 370 / 370 120 / 120 Output Total 1300 / 1300 2300 / 3600 Balance -930 / -930 -2300 / -3230 120 / 120 Weight last 48 hrs Weight 83.098 kg Weight 85.82 kg Weight 86.183 kg Physical Exam 2 Const: COMMON NORMALS: no acute distress and patient oriented x3 Resp: COMMON NORMALS: normal respiratory effort, No retractions and No use of accessory muscles AUSCULTATION: crackles and wheezes Cardio: COMMON NORMALS: regular rate, regular rhythm, S1 normal heart sound present and S2 normal heart sound present RATE: regular rate RHYTHM: r egular rhythm HEART SOUNDS: S1 normal heart sound present and S2 normal heart sound present GI: COMMON NORMALS: Normal to inspection, nondistended, normoactive bowel sounds present and non-tender Extremity: COMMON NORMALS: no pedal edema Neuro: COMMON NORMALS: patient oriented x3 Psych: COMMON NORMALS: mental status grossly normal Urinary Catheter Management: Manuel: Cath Placed During This Visit: no Reason for Continuing Indwelling Catheter: Accurate Measurement of Urinary Output in Critically Ill Patients Data 02/25/25 02:33 02/25/25 02:33 A&P Assessment and plan (1) CHF (congestive heart failure): (2) New onset atrial fibrillation: (3) Pneumonia: (4) T2DM (type 2 diabetes mellitus): (5) Hemoptysis: Plan Scant hemoptysis - Will hold edoxaban for now -Discussed with patient the risk and benefits, shared decision making, he voiced understanding, all questions were, agreed to proceed - Monitor closely for recurrent hemoptysis - Scheduled Tessalon Perles 100 3 times daily Right upper lobe pneumonia, - Concerns for aspiration pneumonia - Aspiration precautions - Did well on his speech therapy eval, advance to cardiac diet - Reviewed cultures - Rocephin, Zithromycin CHF exacerbation, systolic, diastolic - Lasix 40 twice daily - Cardiac echo CONCLUSIONS Normal left ventricular size and systolic function, EF 55%.no regional wall motion abnormalities. Mild biatrial enlargement. Mildly thickened mitral valve. Moderate-severe mitral valve regurgitation. Moderate aortic valve calcification. Mild aortic valve regurgitation. Moderate tricuspid valve regurgitation. Estimated pulmonary artery peak systolic pressure 52 mmHg. There is no pericardial effusion. There are no intracardiac masses. No similar previous studies are available for comparison NSTEMI - Show EKGs, troponins, telemetry monitoring Type 2 diabetes mellitus, low-dose sliding scale DNR/DNI, confirmed with patient multiple times SCDs for DVT prophylaxis, Lovenox and anticoagulation currently on hold as there is concerns for hemoptysis PDMP PDMP Reviewed: Not Reviewed Attestations 2 Medical Necessity Statement*: Patient requires hospitalization for scant hemoptysis, right upper lobe pneumonia, CHF Diagnoses CHF (congestive heart failure) I50.9 Heart failure chronicity: acute Heart failure type: unspecified New onset atrial fibrillation I48.91 Pneumonia J18.9 Type 2 diabetes mellitus without complication, without long-term current use of insulin E11.9 Diabetes mellitus remote computer terminal operator insulin use: without mcc use Diabetes mellitus complication status: without complication Hemoptysis R04.2
[2025-02-25] MEDS: AZITHROMYCIN ADD-Vantage 500 MG in 0.9% NaCl ADD-Vantage 250 ML 250 MG IV (14:35)
[2025-02-25] MEDS: pantoprazole 40 mg SDV IVP (14:35)
[2025-02-25] MEDS: cefTRIAXone 1,000 mg SDV 1000 MG IVP (14:35)
[2025-02-25] MEDS: atorvastatin 40 mg Tablet 80 MG PO (17:38)
[2025-02-25] MEDS: trazodone 100 mg Tablet PO (19:57)
[2025-02-25] MEDS: morphine 4 mg/mL SDV 1 mL 2 MG IVP (19:57)
[2025-02-26] VITALS (7 sets, daily range): BP systolic 106–108; BP diastolic 71–77; PULSE 83–105; RESP 13–18; TEMP 36.7–36.8; O2SAT 85–95
[2025-02-26] MEDS: benzonatate 100 mg Capsule PO ×2 (01:18→08:25)
[2025-02-26 03:25] LABS: Basophils % 0.2 %; Eosinophils # 0.1 10^3/uL (0.0-0.8); Eosinophils % 0.8 %; Hematocrit 42.2 % (37-53); Lymphocytes # 2.7 10^3/uL (0.8-4.8); Lymphocytes % 22.5 %; Mean Corpuscular HGB Conc 33.4 g/dL (30-55); Mean Corpuscular Hemoglobin 30.7 pg (27-33); Mean Corpuscular Volume 91.7 fl (82-101); Mean Platelet Volume 11.3 fL (7.4-10.4); Monocytes # 1.8 10^3/uL (0.2-0.9); Monocytes % 14.9 %; Neutrophils # 7.46 10^3/uL (1.8-7.7); Neutrophils % 61.3 %; Nucleated Red Blood Cells % 0 %; Platelet Count 159 10^3/cmm (157-399); Red Cell Distribution Width 13.5 % (12.1-15.1); White Blood Count 12.18 10^3/uL (3.29-11.43)
[2025-02-26 03:50] LABS: Alanine Aminotransferase 15 U/L (0-41); Albumin Level 3.4 g/dL (3.5-5.2); Alkaline Phosphatase 73 U/L (40-130); Anion Gap 13.3 (5-19); Aspartate Amino Transferase 23 U/L (0-40); Blood Urea Nitrogen 17 mg/dL (8-23); Calcium 8.6 mg/dL (8.5-10.5); Carbon Dioxide 32 mmol/L (22-29); Chloride 93 mmol/L (98-107); Creatinine Clr Calc Pharmacy 60.9615; Globulin 3.3 g/dL (1.3-4.6); Glucose 93 mg/dL (65-115); Osmolality Calculated 281 mOsm/kg (285-295); Potassium 3.3 mmol/L (3.5-5.1); Sodium 135 mmol/L (136-145); Total Bilirubin 1.3 mg/dL (0.15-1.2); Total Protein 6.7 g/dL (6.6-8.7)
[2025-02-26] MEDS: FUROsemide 10 mg/mL SDV 4mL 40 MG IVP (04:25)
[2025-02-26] MEDS: potassium chloride ER 20 mEq Tablet 40 MEQ PO (06:32)
[2025-02-26] MEDS: sertraline 100 mg Tablet 250 MG PO (08:25)
[2025-02-26] MEDS: primidone 50 mg Tablet 25 MG PO (08:26)
[2025-02-26] MEDS: metoprolol tartrate 50 mg Tablet 75 MG PO (08:26)
[2025-02-26] MEDS: ipratropium-albuterol 3 mL Neb INHALATION (08:38)
[2025-02-26] MEDS: budesonide 0.5 mg/2 mL Neb INHALATION (08:38)
--- NOTE | 2025-02-26 09:10 | P.DS_ITS ---
Discharge Providers Date of Admission: 02/24/25 14:54 Date of Discharge: February 26, 2025 Attending Provider at Admission: Tima Sheth MD Attending Provider at Discharge: Tima Sheth MD Primary Care Provider: JERAD Ruffin Diagnoses at Discharge Discharge Diagnosis (1) CHF (congestive heart failure): Status: Acute Qualifiers: Heart failure chronicity: acute Heart failure type: unspecified Qualified Code(s): I50.9 - Heart failure, unspecified (2) New onset atrial fibrillation: Status: Acute (3) Pneumonia: Status: Acute (4) T2DM (type 2 diabetes mellitus): Status: Acute Qualifiers: Diabetes mellitus complication status: without complication Diabetes mellitus senior living insulin use: without remote computer terminal operator use Qualified Code(s): E11.9 - Type 2 diabetes mellitus without complications (5) Hemoptysis: Status: Acute Reason for Visit Reason for Visit: Coughing up blood Hospital Course Hospital Course This is a 74-year-old male with a past medical history of atrial fibrillation, history with issues with bleeding currently on edoxapan 30 mg daily, COPD, type 2 diabetes, who presents due to shortness of breath, cough, hemoptysis Scant hemoptysis -Minimal hemoptysis during his hospitalization, hemodynamic stable, hemoglobin stable - Will hold edoxaban for now -Discussed with patient the risk and benefits, shared decision making, he voiced understanding, all questions were answered, agreed to proceed - Agreed to hold on discharge, discussed risks including but not limited to CAD, strokes - However he tells me that he has had issues with bleeding in the past, - After discussing the risk and benefits, he voiced understanding, all consents are, agreed to hold for now -Will hold until he sees his primary care provider - Have him follow-up with primary care provider For right upper lobe pneumonia, concerns for aspiration pneumonia, seen by speech therapy, diet was advanced managed with IV antibiotics, discharged on p.o. antibiotics For his CHF exacerbation, systolic and diastolic received IV diuresis, overall clinically improved, discharged on Lasix as needed, follow-up with primary care Physical Exam Const: COMMON NORMALS: no acute distress and patient oriented x3 Neck/C-Spine: COMMON NORMALS: no JVD Resp: COMMON NORMALS: normal respiratory effort, No retractions, No use of accessory muscles and clear to auscultation bilaterally AUSCULTATION: clear to auscultation bilaterally Cardio: COMMON NORMALS: no JVD, regular rate, regular rhythm, S1 normal heart sound present and S2 normal heart sound present RATE: regular rate RHYTHM: regular rhythm HEART SOUNDS: S1 normal heart sound present and S2 normal heart sound present GI: COMMON NORMALS: Normal to inspection, nondistended, normoactive bowel allan nds present, Soft to palpation, non-tender, No hepatosplenomegaly present, no masses and no bruits PALPATION: Yes Soft to palpation and Yes No hepatosplenomegaly present Extremity: COMMON NORMALS: capillary refill normal, no clubbing, cyanosis or edema, no calf tenderness and no pedal edema Neuro: COMMON NORMALS: patient oriented x3 Psych: COMMON NORMALS: mental status grossly normal Urinary Catheter Management: Manuel: Cath Placed During This Visit: no Reason for Continuing Indwelling Catheter: Other Discharge Data Studies Completed and Pending Completed Studies During Hospitalization Category Date Time Status CTA chest [CT angio chest PE protcl [id number]] Stat Cat Scan 02/24/25 09:50 Completed XR chest 1V portable [id number] Stat Exams 02/24/25 09:26 Completed CV. echo complete* [id number] Stat Ultrasound 02/24/25 12:58 Completed Pending at discharge Category Date Time Status Complete Blood Count w/Auto AM LABS Lab 02/27/25 04:00 Ordered Comprehensive Metabolic Panel AM LABS Lab 02/27/25 04:00 Ordered Sputum Culture and Gram Stain Stat Lab 02/25/25 08:30 Results Radiology Impressions Chest X-Ray 02/24/25 09:26 IMPRESSION: Significant interval change compared to the previous examination which would appear to represent multifocal pneumonitis. This may be superimposed on congestive heart failure. There is a CT scan of the chest to follow. Chest CTA 02/24/25 09:50 IMPRESSION: 1. No evidence of pulmonary embolus 2. Cardiomegaly with RIGHT heart dysfunction 3. Patchy infiltrates worse in the RIGHT upper lobe described above. Interstitial edema 4. Small RIGHT greater than LEFT pleural effusions. Laboratory Results WBC 12.18 10^3/uL (3.29-11.43) H 02/26/25 02:05 RBC 4.60 10^6/uL (3.85-5.65) 02/26/25 02:05 Hgb 14.10 g/dL (11.27-16.99) 02/26/25 02:05 Hct 42.2 % (37-53) 02/26/25 02:05 MCV 91.7 fl (82-101) 02/26/25 02:05 MCH 30.7 pg (27-33) 02/26/25 02:05 MCHC 33.4 g/dL (30-55) 02/26/25 02:05 RDW 13.5 % (12.1-15.1) 02/26/25 02:05 Plt Count 159 10^3/cmm (157-399) 02/26/25 02:05 MPV 11.3 fL (7.4-10.4) H 02/26/25 02:05 Neut % (Auto) 61.3 % 02/26/25 02:05 Lymph % (Auto) 22.5 % 02/26/25 02:05 [place] % (Auto) 14.9 % 02/26/25 02:05 Eos % (Auto) 0.8 % 02/26/25 02:05 Baso % (Auto) 0.2 % 02/26/25 02:05 Neut # (Auto) 7.46 10^3/uL (1.8-7.7) 02/26/25 02:05 Lymph # (Auto) 2.7 10^3/uL (0.8-4.8) 02/26/25 02:05 [place] # (Auto) 1.8 10^3/uL (0.2-0.9) H 02/26/25 02:05 Eos # (Auto) 0.1 10^3/uL (0.0-0.8) 02/26/25 02:05 Baso # (Auto) 0.0 10^3/uL (0.0-0.1) 02/26/25 02:05 Nucleated RBC % (auto) 0 % 02/26/25 02:05 Nucleated RBCs # 0.0 /100WBC 02/26/25 02:05 ESR 6 mm/hr (0-10) 02/24/25 09:41 PT 15.30 SECONDS (12.1-14.9) H 02/24/25 09:41 INR 1.13 (0.8-1.2) 02/24/25 09:41 APTT 30.2 SECONDS (23.9-36.7) 02/24/25 09:41 D-Dimer 0.81 ug/mLFEU (0-0.59) H 02/24/25 09:41 Sodium 135 mmol/L (136-145) L 02/26/25 02:05 Potassium 3.3 mmol/L (3.5-5.1) L 02/26/25 02:05 Chloride 93 mmol/L (98-107) L 02/26/25 02:05 Carbon Dioxide 32 mmol/L (22-29) H 02/26/25 02:05 Anion Gap 13.3 (5-19) 02/26/25 02:05 BUN 17 mg/dL (8-23) 02/26/25 02:05 Creatinine 1.1 mg/dL (0.7-1.2) 02/26/25 02:05 GFR Calculation Not Reportable 02/26/25 02:05 Glucose 93 mg/dL (65-115) 02/26/25 02:05 Estimat Average Glucose 114 02/24/25 09:41 Hemoglobin A1c 5.6 % (4.0-6.0) 02/24/25 09:41 Calculated Osmolality 281 mOsm/kg (285-295) L 02/26/25 02:05 Lactic Acid 1.5 mmol/L (0.5-2.2) 02/24/25 09:41 Calcium 8.6 mg/dL (8.5-10.5) 02/26/25 02:05 Total Bilirubin 1.3 mg/dL (0.15-1.2) H 02/26/25 02:05 AST 23 U/L (0-40) 02/26/25 02:05 ALT 15 U/L (0-41) 02/26/25 02:05 Alkaline Phosphatase 73 U/L (40-130) 02/26/25 02:05 Troponin T Baseline 33 ng/L (0-15) H 02/24/25 09:41 Troponin T 120 Minute 29.73 ng/L (0-15) H 02/24/25 11:25 Delta Troponin T -3.27 ABS# (0-10) L 02/24/25 11:25 Troponin T Hi Sens 6Hr 25.95 ng/L (0-15) H 02/24/25 16:31 Troponin T Hi Sens 6Hr Delta -7.05 ng/L (0-12) L 02/24/25 16:31 C-Reactive Protein 18.9 mg/L (0.0-4.9) H 02/24/25 09:41 NT-Pro-B Natriuret Pep 3846 pg/mL (0-450) H 02/24/25 09:41 Total Protein 6.7 g/dL (6.6-8.7) 02/26/25 02:05 Albumin 3.4 g/dL (3.5-5.2) L 02/26/25 02:05 Globulin 3.3 g/dL (1.3-4.6) 02/26/25 02:05 Triglycerides 74 mg/dL (0-150) 02/24/25 11: Cholesterol 96 mg/dL (0-200) 02/24/25 11:25 LDL Cholesterol, Calc 44 mg/dL (50-129) L 02/24/25 11: HDL Cholesterol 37 mg/dL (60-100) L 02/24/25 11:25 LDL/HDL Ratio 1.19 RATIO (0.00-3.22) 02/24/25 11: Cholesterol/HDL Ratio 2.59 mg/dL (1.0-5.00) 02/24/25 11:25 Procalcitonin 0.06 ng/mL (0-0.5) 02/24/25 09:41 TSH 1.91 uIU/mL (0.27-4.20) 02/24/25 11:25 Vitals Last Vital Signs Temp 98.2 F 02/26/25 07:38 Pulse 85 02/26/25 08:00 Resp 18 02/26/25 08:00 BP 108/77 02/26/25 07:38 Pulse Ox 92 02/26/25 08:00 O2 Del Method Nasal Cannula 02/26/25 08:00 O2 Flow Rate 3 02/26/25 08:00 Discharge Plan Discharge Patient Disposition: Home Condition: Stable Prescriptions: New amoxicillin-pot clavulanate 875-125 mg tablet 1 tab PO BID 5 Days Qty: 10 0RF furosemide [Lasix] 20 mg tablet 20 mg PO DAILY PRN (Reason: edema) 30 Days Qty: 30 0RF Rx Instructions: for shortness of breath, weight gain or edema Continued sertraline 100 mg tablet 250 mg PO DAILY trazodone 100 mg tablet 100 mg PO BEDTIME ascorbate calcium (vitamin C) 500 mg tablet 500 mg PO DAILY famotidine 20 mg tablet 20 mg PO BID metoprolol tartrate 50 mg tablet 75 mg PO BID Qty: 260 3RF primidone 50 mg Tablet 25 mg PO TID Rx Instructions: take 1/2 tablet by mouth three times daily for tremor fluticasone propion-salmeterol 250-50 mcg/dose Blister With Device 1 inh INHALATION BID atorvastatin 80 mg Tablet 80 mg PO QPM cetirizine 10 mg Tablet 10 mg PO DAILY calcium carbonate [Calcium 500] 500 mg calcium (1,250 mg) Tablet 500 mg PO DAILY fluticasone propionate [Flonase] 50 mcg/actuation [place],Suspension 2 spray INTRANASAL DAILY Rx Instructions: administer into each nostril cholecalciferol (vitamin D3) [D3-2000] 50 mcg (2,000 unit) Capsule 50 mcg PO DAILY Marijuana Gummie 25 mg PO BEDTIME PRN (Reason: Pain) Held edoxaban 30 mg Tablet 30 mg PO DAILY Hold Instructions: Resume on 03/13/25. hold for 2 weeks Discharge Orders: Discharge Order (Routine); Ordered 02/26/25 Ordered By: Tima Sheth Referrals: Karen Mcclendon FNP [Primary Care Provider, Nurse Practitioner] Discharge Diet: Cardiac Discharge Activity: Resume usual activity Patient Instructions: Opioid Safety Discharge Attestations Time Spent in Discharge Care*: greater than 30 min Quality Metrics Clinical Quality Measures [ No reported AMI, CVA or VTE this stay] Coding Level of Care Code 24989 Total time (in minutes) for Discharge: 45 Diagnoses CHF (congestive heart failure) I50.9 Heart failure chronicity: acute Heart failure type: unspecified New onset atrial fibrillation I48.91 Pneumonia J18.9 Type 2 diabetes mellitus without complication, without long-term current use of insulin E11.9 Diabetes mellitus complication status: without complication Diabetes mellitus senior living insulin use: without remote computer terminal operator use Hemoptysis R04.2
--- NOTE | 2025-02-26 11:20 | PC.NURSE ---
Waiting on Dr. Sheth to sign the DME order for oxygen and then [facility] .
--- NOTE | 2025-02-26 11:30 | PC.NURSE ---
Faxed all information to [facility] for patient to have oxygen brought to patient at this time.
--- NOTE | 2025-02-26 15:00 | PC.NURSE ---
Oxygen arrived at this time. Patient's was called ans she will be her soon.
== END 2025-02-26 14:55 | disposition home or self-care (01) | DRG 193 ==
LOC: ER 12:14 → MEDSURG 14:55
PROVIDERS: Admitting Provider Family Medicine; Emergency Provider Physician Assistant; PCP Nurse Practitioner; Visit Provider Family Medicine
DX: J18.9 Pneumonia, unspecified organism (principal); I50.31 Acute diastolic (congestive) heart failure; J44.0 Chronic obstructive pulmonary disease with (acute) lower respiratory infection; I11.0 Hypertensive heart disease with heart failure; I48.91 Unspecified atrial fibrillation; E11.9 Type 2 diabetes mellitus without complications; Z79.891 Long term (current) use of opiate analgesic; E78.5 Hyperlipidemia, unspecified; Z87.891 Personal history of nicotine dependence; F41.9 Anxiety disorder, unspecified; F32.A Depression, unspecified; Z85.850 Personal history of malignant neoplasm of thyroid; E89.0 Postprocedural hypothyroidism
CPT/HCPCS: 36415; 51702; 71045; 71275; 80053; 80061; 83036; 83605; 83880; 84145; 84443; 84484; 85025; 85378; 85610; 85651; 85730; 86140; 87070; 87077; 87186; 87205; 92523; 92610; 93005; 93306; 94640; 94760; 99285; J0456; J0696; J1940; J2270; J2470; J7050; J7626; J9999